=== PATIENT | female | born 1975 | race Caucasian/White ===

== ENCOUNTER 2019-02-03 02:04 | Emergency (ER) | payer SELFPAY ==
[2019-02-03 02:06] VITALS: BP 142/84; PULSE 80; PULSE 81; RESP 14; TEMP 37.2; O2SAT 100; O2SAT 98; BMI 34.7
--- NOTE | 2019-02-03 02:15 | ED.VIS.GEN ---
History of Present Illness Chief Complaint: Flank Pain Detail of Chief Complaint: Patient lower abdominal pain Informant: Patient Onset: Today Context: Sudden Onset Timing: Continuous Quality: Pain Location: Suprapubic Current Severity: Mild Maximum Severity: Moderate Worsened by: Palpation Relieved by: Nothing Associated Symptoms: Frequency Narrative: Patient is a 43-year-old woman who presents with suprapubic discomfort and frequency. She denies fever, chills or night sweats. She denies nausea, vomiting or diarrhea. She denies constipation. Denies blood or mucus in her stool. She denies black or maroon stool. She denies vaginal bleeding. She does have a large ventral hernia which is a recurrent hernia. She denies back pain or flank pain. Triage documents flank pain. She denies history of trauma. She denies rash or skin lesion. Prior similar symptoms: No Recent Illness/Hospitalization: No Past Medical History - Allergies and Home Meds Allergies/Adverse Reactions: Allergies No Known Allergies Allergy (Verified 02/03/19 02:26) Primary Care Physician: NOT,DEFINED [NON-STAFF] - Prior records reviewed: No - There are no records for review Surgical History: - - Ventral hernia repair Lives: Alone Smoking Status: Former smoker Alcohol: None Drugs: None Review of Systems General: Denies: Chills, Fever, Malaise, Sweats Cardiovascular: Denies: Chest pain, Palpitations Respiratory: Denies: Dyspnea, Cough, Dyspnea on exertion Gastrointestinal: Reports: Abdominal pain. Denies: Nausea, Vomiting, Diarrhea, Constipation, Melena, Hematochezia Genitourinary: Reports: Frequency. Denies: Dysuria, Hematuria Musculoskeletal: Denies: Myalgias, Arthralgias, Neck pain, Back pain, Swelling, Extremity Pain, -, - Skin: Denies: Rash, Wounds Neurological: Denies: Headache, Weakness, Parasthesia, Numbness Endocrine: Denies: Polyuria, Polydipsia Hematologic: Reports: Easy bruising, Easy bleeding Physical Exam Vital Signs/Narrative: Vital Signs Temp Pulse Resp BP Pulse Ox 02/03/19 02:06 98.9 F 81 14 142/84 H 98 Inital Vital Signs reviewed: Yes General: Well nourished, Well developed, No Acute Distress Head: Normocephalic, Atraumatic Eyes: Perrl, EOMI ENT: Moist mucous membranes, No rhinorrhea Neck: Supple, Nontender, No lymphadenopathy, No JVD Cardiovascular: Regular rate, Regular rhythm, No murmurs, Normal S1, Normal S2 Respiratory: No distress, CTA bilaterally, Chest nontender Abdomen: Soft, Normal bowel sounds, Tender - Suprapubic area, Ventral hernia, Hernia reducible. Negative for: Nontender, Nondistended, No masses Rectal: Deferred Back: Nontender, Normal Inspection Extremities: Nontender, No edema Skin: Normal color, No rash, No Trauma. Negative for: Cyanosis, Diaphoresis, Jaundice Neurological: Alert, Oriented x3, Cranial nerves II-XII grossly intact, Normal Strength, Normal Sensation Psychological: Normal affect, Normal Mood Diagnostic/Tx/Re-eval Laboratory Results 02/03/19 02/03/19 02:20 02:30 WBC 10.8 RBC 4.38 Hgb 8.5 L Hct 29.0 L MCV 66.2 L MCH 19.4 L MCHC 29.3 L RDW Std Deviation 43.4 RDW Coeff of Crow 18.6 H Plt Count 441 MPV 10.6 Immature Gran % (Auto) 0.500 Neut % (Auto) 71.0 H Lymph % (Auto) 18.4 L [place] % (Auto) 8.7 Eos % (Auto) 1.1 Baso % (Auto) 0.3 Absolute Neuts (auto) 7.7 Absolute Lymphs (auto) 1.98 Nucleated RBC % 0 Urine Color Yellow Urine Clarity Sl. Cloudy Urine pH 7.0 Ur Specific [place] 1.010 Urine Protein Negative Urine Glucose (UA) Normal Urine Ketones Negative Urine Occult Blood Negative Urine Nitrite Negative Urine Bilirubin Negative Urine Urobilinogen Normal Ur Leukocyte Esterase 500 H Urine RBC 0 SEEN Urine WBC 5-10 SEEN Ur Squamous Epith Cells 5-10 SEEN Urine Bacteria 0 SEEN Urine Mucus 0 SEEN - Medical Decision Making With complaint of frequency and suprapubic discomfort UA was obtained to assess for urinary tract infection. Patient does have a ventral hernia that is reducible and has no symptoms of obstruction therefore imaging was not obtained. CBC was obtained. If white count is elevated will consider CT of the abdomen and pelvis to assess for appendicitis or other cause. Her abdominal exam is remarkable only for suprapubic discomfort. No other testing was obtained She was reassessed at 0245. Her abdomen is essentially benign. There is minimal discomfort in the suprapubic area. She was informed that her results are unremarkable. The cause of her pain is unknown. [facility] was [facility] since she is new to the area and uninsured. ED Disposition - Plan for ED Patient: Disposition: Home or Assisted Living Diagnosis: Suprapubic pain, acute Instructions: ABDOMINAL PAIN, Unknown Cause, (Female) Prescriptions: Dicyclomine HCl [Bentyl] 20 mg PO TIDAC #20 cap Prescription Printed Referrals: NOT,DEFINED [NON-STAFF] - [facility] [NON-STAFF] - 3-5 Days if not improving
[2019-02-03 02:35] LABS: Absolute Lymphocyte Count 1.98 X10^3/uL (0.83-4.51); Absolute Neutrophil Count 7.7 X10^3/uL (2.0-7.7); Basophil# 0.03 X10^3/uL; Basophil% 0.3 % (0-1); Eosinophil# 0.12 X10^3/uL; Eosinophils% 1.1 % (0-5); Hemoglobin 8.5 g/dL (12.0-15.0); Lymphocyte # 1.98 X10^3/ul (4.0); Lymphocyte % 18.4 % (19-41); Mean Corp Hgb Conc 29.3 g/dL (32-36); Mean Corpuscular Hgb 19.4 pg (27.0-32.0); Mean Corpuscular Volume 66.2 fL (81-99); Mean Platelet Vol. 10.6 fl (6.2-12.0); Monocyte# 0.94 X10^3/uL; Monocyte% 8.7 % (0-10); NRBC Flagged by Analyzer 0 % (0-5); Neutrophil # 7.65 X10^3/uL (2.7-7.7); Platelet Count 441 K/mm3 (150-450); RBC Distribution Width CV 18.6 % (11.6-14.6); RBC Distribution Width SD 43.4 fl (35.1-43.9); Red Blood Count 4.38 M/mm3 (4.2-5.4); White Blood Count 10.8 K/mm3 (4.4-11.0)
[2019-02-03 02:36] LABS: Bacteria 0 SEEN /hpf (None Seen); Color, Urine Yellow (Yellow); Glucose, Dipstick Normal (Normal); Ketone-Dipstick Negative (Negative); Leukocyte Esterase-Dipstick 500 /ul (Negative); Mucous, Urine 0 SEEN /hpf (<or=2+); Nitrite-Dipstick Negative (Negative); Occult Blood-Urine Negative /ul (Negative); Protein-Dipstick Negative (Negative); Red Blood Cells-Urine 0 SEEN /hpf (0-5); Urine Bilirubin Dipstick Negative (Negative); Urine Clarity Sl. Cloudy (Clear); Urine Urobilinogen Normal (Normal)
[2019-02-03 02:42] LABS: Squamous Epithelial Cells - UA 5-10 SEEN /hpf (5-10); White Blood Cells 5-10 SEEN /hpf (0-5)
[2019-02-03 02:57] VITALS: BP 131/79; PULSE 82; RESP 18; O2SAT 97
--- NOTE | 2019-02-03 02:58 | ED.RN ---
THIS NURSE REVIEWED D/C INSTRUCTIONS WITH PT. PT VERBALIZED UNDERSTANDING OF INSTRUCTIONS. IV D/C. IV CATHETER INTACT. PT TOLERATED WELL. PT REQUESTING A DR EXCUSE FOR WORK TODAY. PT DENIES FURTHER NEEDS OR QUESTIONS AT THIS TIME. PT AMBULATES FROM ROOM ON OWN WITHOUT ASSISTANCE FROM STAFF.
== END 2019-02-03 02:59 | disposition home or self-care (01) ==
PROVIDERS: Emergency Provider Emergency Medicine
DX: R10.30 Lower abdominal pain, unspecified (principal); Z87.891 Personal history of nicotine dependence
CPT/HCPCS: 81001; 85025; 99284; A4216

== ENCOUNTER 2019-02-03 11:14 | Inpatient (IN) | payer SELFPAY ==
--- NOTE | 2019-02-03 | PLAC_PTH ---
PATIENT: JOSE HARRIS LOC: [facility] U#:[id number] AGE/SX: 43/F ROOM: WP008 RE02/03/[address]: Dr. Eloise Talbot, MDDOB: 1975 BED: 1 DIS: 02/04/2019 SPEC #: [id number] RECD: 02/04/19 12:40 STATUS: VANESSA MARICARMEN #: [id number] GABY: 02/03/19 00:[address]: Eloise Talbot DEPT: SURGICAL PATHOLOGY RECD BY: Celio Espana ENTERED: 02/04/19 12:40 SP TYPE: PLACENTA OTHR DR: No Primary Care Phys Tissues: Placenta, NOS Procedures: Surgery Specimen Level V HEADER OPERATION: Vaginal delivery PRE-OP DIAGNOSIS: Labor and delivery TISSUE SUBMITTED: Placenta MICROSCOPIC DIAGNOSIS Nicole placenta (409 grams) Umbilical cord - two vessels with focal acute funisitis. Placental membranes - focal mild acute chorioamnionitis. Placental disc - organizing intraparenchymal hemorrhage, focal nonspecific chronic villitis and Joel-Alejandro change. AM:godwin 02/05/19 MICROSCOPIC DESCRIPTION Slides are reviewed. GROSS DESCRIPTION SPECIMEN: PLACENTA / CLINICAL INFORMATION: A. Weight: 2.995 kg B. Gestational Age: C. Sex: Female PLACENTAL WEIGHT (POST FIXATION): 409 grams PLACENTAL DIMENSIONS: 17 x 13 x 3 cm PLACENTAL SHAPE: Usual ovoid PLACENTAL WEIGHT FOR GESTATIONAL AGE: Within 10-99th percentile MEMBRANES - Present A. Insertion: Marginal B. Site of rupture from edge: 13 cm from the margin edge of placental disc C. Color of membrane: Briceno-torres D. Abnormalities: None UMBILICAL CORD - Present A. Color: Briceno-torres B. Insertion: Central C. Length: 46 cm D. Diameter: up to 1 cm in diameter E. Number of vessels: Two F. Abnormalities: None PLACENTAL DISC - Present A. Color of surface: Briceno-torres B. surface abnormalities: None C. Maternal cotyledons: Intact with minimal tears D. Attached retro placental clot: Also present at the retro portion of the placenta, multiple blood clots weighing in aggregate 20 grams and measuring in aggregate 5 x 4 x 2 cm E. Cut surface: Dark red and spongy F. Lesions: One briceno indurated area in the peripheral portion of the placenta measuring 1.5 cm in greatest dimension G. Separate clot: multiple blood clots weighing in aggregate 40 grams and measuring 9 x 7 x 3 cm. SECTIONS SUBMITTED: 1. Membrane roll 2. Cord, maternal end 3. Cord, end 4. Placental disc, and maternal surfaces, lesions 5. Placental disc, and maternal surfaces 6. Placental disc, and maternal surfaces DIXON:sp 02/04/19 TC: CPT: 55435
[2019-02-03 02:06] VITALS: BMI 34.7
[2019-02-03 11:14] VITALS: BP 145/95; PULSE 125; RESP 16; TEMP 36.1; O2SAT 96; BMI 34.0
--- NOTE | 2019-02-03 11:15 | ED.RN ---
pt vague about where pain is in back. states all over. denies injury or hx back pain. reports urinated in pants a little bit ago (still wearing) denies gu sx or issues. holding sides.mid back and hunched over when walking. after further questioning patient points to mid/lower back for pain. assisted to bathroom, instructed on urine collection. pt unable to urinate at this time.
--- NOTE | 2019-02-03 11:55 | ED.RN ---
Addendum entered by Consuelo Webb 02/03/19 12:54: pt asked of chance of at this time. denies chance of reports had reg period just few months ago. Original Note: noted blood on blanket. pt denies knowing she was bleeding. nurse assessed blood and mucus on sheets with scant stool. cleaned pt and assessed where bleeding comingfrom. pt bleeding vaginally. constant slow seeping of blood.
[2019-02-03] MEDS: Ondansetron 4 MG/2 ML Vial IV (11:56)
[2019-02-03] MEDS: Morphine 4 MG/ML Syringe IV (11:56)
[2019-02-03] MEDS: 0.9% Normal Saline 1,000 ML 1000 ML IV (11:56)
--- NOTE | 2019-02-03 12:00 | ED.RN ---
dr martinez notified of vag bleeding and mucus.
[2019-02-03 12:01] LABS: Absolute Lymphocyte Count 1.36 X10^3/uL (0.83-4.51); Absolute Neutrophil Count 13.9 X10^3/uL (2.0-7.7); Basophil# 0.03 X10^3/uL; Basophil% 0.2 % (0-1); Eosinophil# 0.01 X10^3/uL; Eosinophils% 0.1 % (0-5); Hematocrit 31.5 % (37-47); Hemoglobin 9.3 g/dL (12.0-15.0); Lymphocyte # 1.36 X10^3/ul (4.0); Lymphocyte % 8.4 % (19-41); Mean Corp Hgb Conc 29.5 g/dL (32-36); Mean Corpuscular Hgb 19.6 pg (27.0-32.0); Mean Corpuscular Volume 66.3 fL (81-99); Mean Platelet Vol. 10.2 fl (6.2-12.0); Monocyte# 0.68 X10^3/uL; Monocyte% 4.2 % (0-10); NRBC Flagged by Analyzer 0 % (0-5); Neutrophil # 13.87 X10^3/uL (2.7-7.7); Neutrophil % 86.1 % (47-70); Platelet Count 502 K/mm3 (150-450); RBC Distribution Width CV 18.7 % (11.6-14.6); RBC Distribution Width SD 43.3 fl (35.1-43.9); Red Blood Count 4.75 M/mm3 (4.2-5.4); White Blood Count 16.1 K/mm3 (4.4-11.0)
--- NOTE | 2019-02-03 12:07 | ED.RN ---
Addendum entered by Consuelo Webb 02/03/19 12:57: DR mcdaniels at bedside clamped/cut cord. baby suctioned and skin from dusky to pink. no distress noted with baby or mother at this time. Original Note: registration went to go n room. noted pt laying flat in bed and a baby on the bed. called for assistance. nursing and 2 doctors at bedside to treat and mother. OB BEVERAGE SPECIALIST called.
[2019-02-03 12:10] LABS: ALB/GLOB Ratio 0.6 RATIO (0.9-2.4); AST(SGOT) 13 U/L (15-37); Alanine Aminotransfer ALT/SGPT 9 U/L (13-56); Albumin, Serum 2.7 g/dL (3.2-5.0); Alkaline Phosphatase 128 U/L (45-117); Anion Gap 9 (5-15); BUN 5 mg/dL (7-18); BUN/Creat Ratio 7.9 RATIO (10-20); Calcium,Total 8.9 mg/dL (8.5-10.1); Chloride 107 mmol/L (98-107); Creatinine, Serum 0.64 mg/dL (0.55-1.02); EST Glomerular Filtration Rate 109 mL/min (>60); Est Glom Filt Rate - Afr Amer 131 mL/min (>60); Estimated Creatinine Clearance 115.51 ml/min; Globulin 4.7 g/dL (2.2-4.2); Glucose 124 mg/dL (74-106); Lipase 127 U/L (73-393); Potassium 3.4 mmol/L (3.5-5.1); Protein, Total 7.4 g/dL (6.4-8.2); Sodium Level 137 mmol/L (136-145)
--- NOTE | 2019-02-03 12:10 | ED.RN ---
Addendum entered by Consuelo Webb 02/03/19 12:59: bedside report to OB team who assumed care of baby and mother., Original Note: OB team at bedside assisting with care. dr martinez placing pressure to abd and managing placenta delivery. dr yost in route to ED
[2019-02-03 12:25] LABS: Internal QC Validated? YES +Cl - CLEAR BKGD
[2019-02-03] MEDS: Oxytocin 30 units/NS 500 ml 30 UNITS/500 ML IV.SOLN 334 UNITS IV (12:25)
[2019-02-03 12:28] LABS: Pregnancy, Serum, hCG Quali. POSITIVE Negative
--- NOTE | 2019-02-03 12:30 | ED.RN ---
pt declines calling family or friend at this time.
--- NOTE | 2019-02-03 12:41 | PCM.HP.OB ---
History Date of Admission: 02/03/19 Final BUTCH Source: LMP Gestational age: UNSURE History of this : This is a 43 year-old, G 2p1 - UNSURE OF LMP- STATES HAD A MENSES ABOUT 2 MONTHS AGO- PRESENTED TO ER C/O ABDOMINAL PAIN AND URINARY INCONTINENCE- DELIVERED LIVE FEMALE . PT REPORTS HAD NO IDEA SHE WAS . I WAS CALLED TO EVALUATE PATIENT AND DELIVER PLACENTA. PT REPORTS HAS NOT SEEN SPINE SURGEON IN YEARS, HAS ONE SON AGE 19- VAGINAL DELIVERY. PT DENIES DRUG USE, SMOKING, OR MEDICATIONS. Medical History: Medical History (Last Updated 02/03/19 @ 12:46 by Eloise Talbot MD) Hernia K46.9 Allergies Penicillins Allergy (Verified 02/03/19 11:16) Hives Home Medications: Home Medications NK 02/03/19 Smoking Status: Former smoker Alcohol: None Number of Fetus(es): 1 History Past Pregnancies: Past Pregnancies Delivery Date Name GA/Weeks Outcome Route Weight Infant Gender Labor Length Anesthesia Delivery Location Provider FOB Labs: no care Physical Exam Vitals: Vital Signs Temp Pulse Resp BP Pulse Ox 97 F L 125 H 16 145/95 H 96 02/03/19 11:14 02/03/19 11:14 02/03/19 11:14 02/03/19 11:14 02/03/19 11:14 General: Alert, Oriented x3 Assessment/Plan All Active Problems Suprapubic pain, acute (Acute) This is a 43 year-old, - S/P VAGINAL DELIVERY IN ER- NO CARE DID NOT KNOW SHE WAS . 1) URINE DRUG SCREEN 2) PLACENTA DELIVERED - FUNDUS FIRM- BLEEDING MINIMAL 3) SOCIAL WORK CONSULTATION 4) CONTINUE PITOCIN IV 5) 2ND DEGREE VAGINAL LACERATION- REPAIRED 6 TRANFER TO [facility]
--- NOTE | 2019-02-03 12:49 | PCM.OPRPT ---
Vaginal Delivery Maternal Presentation: - - NO CARE- PRECIPTIOUS DELIVERY IN ER- CAME C/O ABDOMINAL PAIN AND URINARY INCONTIENENCE Amniotic Membrane Rupture Type: Spontaneous Date of Procedure: 02/03/19 Pre-Operative Diagnosis: NO CARE, FEMALE BORN IN ER Post-Operative Diagnosis: SAME Surgery/ Procedure Performed: Spontaneous Vaginal Delivery Type of Anesthesia: None Description of Procedure: I WAS CALLED TO ER TO EVAULATE PATIENT AFTER SHE UNEXPECTEDLY DELIVERED LIVE FEMALE IN ER. PT DID NOT KNOW SHE WAS . REPORTS HAD MENSES ABOUT 2 MONTHS AGO Presentation: Vertex Placental Delivery Description: Spontaneous Placenta Disposition: Routine to Lab Cord Vessel Description: 3 Vessels Estimated Blood Loss: 250 A gender: Female Episiotomy Description: None Laceration: Vaginal Extension/lac - REAPAIRED WITH 2-0 VICRYL, 2nd degree Medications given after delivery: IV Pitocin
[2019-02-03] MEDS: Oxytocin 30 units/NS 500 ml 30 UNITS/500 ML IV.SOLN 167 UNITS IV (12:55)
--- NOTE | 2019-02-03 13:02 | CM.ED ---
Social Work Responding to OB MOLECULAR PATHOLOGIST in ED. Was unable to meet with patient in room due to patient being medically cared for. Per nursing staff patient delivered while in ED. Registration was going to register patient when registration noticed an infant on patient bed. MOLECULAR PATHOLOGIST then called. Nursing staff stating that patients back was towards , umbilical cord still connecting and patient. Nursing staff stating that patient was not aware that patient was and was coming to the emergency department for treatment of back pain. Patient declined skin to skin, per nursing staff. Nursing staff reporting that patient is presenting with a flat affect and is in shock. Patient transferred to [facility]. This social media director giving hand off of above concerns to DANYELL Curran in [facility]. Social work to follow up with patient in . Sadi AYALA, MEKHI
[2019-02-03 13:12] VITALS: BMI 31.1
--- NOTE | 2019-02-03 13:15 | ED.VISSUMM ---
- ER Visit Summary Date of Service: 02/03/19 Chief Complaint: Back and abdominal pain History of Present Illness: The patient is a 43 F who presents with back and abdominal pain that began yesterday. Patient states her pain is cramping and is diffuse across her abdomen and into her back. Patient states the pain is worse on the right. Patient states her pain feels slightly better with laying on her left side. Patient denies any nausea or vomiting. Patient denies any diarrhea, melena, or hematochezia. Patient denies any dysuria or hematuria. Patient states her last menstrual period was 2 months ago and was normal. Patient was seen here earlier today and had a CBC and urinalysis which were essentially normal. Physical Examination: Vital signs are stable except for mild tachycardia of 125. Patient is afebrile. Patient is in no acute distress. Oral mucosa was pink and moist. Neck is supple. Trachea is midline. There is no JVD. Heart was regular and tachycardic. Lungs are clear and equal bilaterally. Abdomen is soft. Bowel sounds are normal. There is a ventral hernia that is nontender. Patient would not lay on her back for complete evaluation. Patient only wanted to lay on her left side. There is right lower quadrant and right lower lumbar tenderness. Test Results: CBC and comprehensive metabolic profile were obtained. There is mild leukocytosis of 16.1. Platelets were slightly elevated at 502. The remaining labs were essentially within normal limits. Serum hCG was positive. Emergency Department Course and Treatment: Patient was given IV fluids, morphine, and Zofran. While here in the emergency department patient started having more pain. Patient delivered a baby girl that appeared to be near full-term. OB was consulted. They came in to evaluate the patient. The placenta was delivered by Dr. Escobar. She also repaired a small vaginal tear. Patient will be admitted to the OB unit. Patient understood and was agreeable with the plan. All questions were answered. Disposition: Admit to OB Impression: Vaginal delivery This note was generated with [employer] dictation software. It may contain incorrect words, spelling, and punctuation that were not noted in review of the chart prior to signing ED Disposition - Plan for ED Patient: Disposition: Acute Care [facility] Diagnosis: Vaginal delivery Referrals: Care Physician,No Primary [Primary Care Provider] -
[2019-02-03] MEDS: Ibuprofen 600 MG Tablet PO ×2 (13:47→20:43)
--- NOTE | 2019-02-03 14:10 | NURSING ---
OB ERT called to ED at approximately 1207. Zhane Duarte, Kathy Scales, and Yadira responded to ED by 1210. According to ED nurse, Lilibeth, patient came in with back pain and did not know she was . She delivered a viable, vigorous female at approximately 1205. ED doctor and nurse were at bedside. Infant appeared to have score of 9 at that time. Infant was given warm blankets. Placed in a radiant warmer and taken to next room as high energy forming equipment operator arrived by [address] Escobar at beside at 1218. Placenta was delivered at 1223. A 2nd degree vaginal laceration was repaired by OB at bedside with lidocaine. IV Pitocin administered at 1225 at 334ml/hr by this RN (see MAR). Pericare performed and linens changed following vaginal repair. Patient was transferred to OB via stretcher at approximately 1255.
[2019-02-03 14:22] LABS: Absolute Lymphocyte Count 0.91 X10^3/uL (0.83-4.51); Absolute Neutrophil Count 19.8 X10^3/uL (2.0-7.7); Basophil# 0.03 X10^3/uL; Basophil% 0.1 % (0-1); Hemoglobin 8.3 g/dL (12.0-15.0); Lymphocyte # 0.91 X10^3/ul (4.0); Lymphocyte % 4.2 % (19-41); Mean Corp Hgb Conc 29.6 g/dL (32-36); Mean Corpuscular Hgb 19.6 pg (27.0-32.0); Mean Corpuscular Volume 66.2 fL (81-99); Mean Platelet Vol. 10.6 fl (6.2-12.0); Monocyte# 0.84 X10^3/uL; Monocyte% 3.9 % (0-10); NRBC Flagged by Analyzer 0 % (0-5); Neutrophil # 19.82 X10^3/uL (2.7-7.7); Platelet Count 423 K/mm3 (150-450); RBC Distribution Width CV 18.7 % (11.6-14.6); RBC Distribution Width SD 43.6 fl (35.1-43.9); Red Blood Count 4.23 M/mm3 (4.2-5.4); White Blood Count 21.8 K/mm3 (4.4-11.0)
[2019-02-03 15:35] LABS: Pathology Specimen OB SEE PATHOLOGY REPORT
[2019-02-03 16:00] VITALS: BP 112/53; PULSE 102; RESP 18; TEMP 36.4; O2SAT 95
[2019-02-03 16:03] LABS: Amphetamine Urine VISTA NEGATIVE (<1000 ng/mL); Barbiturate Urine VISTA NEGATIVE (< 200 ng/mL); Benzodiazepine Urine VISTA NEGATIVE (< 200 ng/mL); Cocaine Urine VISTA NEGATIVE (< 300 ng/mL); Ecstacy Urine VISTA NEGATIVE (< 500 ng/mL); Methadone Urine VISTA NEGATIVE (< 300 ng/mL); PCP Urine VISTA NEGATIVE (< 25 ng/mL); THC Urine VISTA NEGATIVE (< 50 ng/mL); Vista UDS pH Range 5
--- NOTE | 2019-02-03 17:00 | CASEMGMT ---
Social Work Labor and Delivery Unit Handoff report received from ED social media director Leanne Mckinney today. Spoke patient/mother of baby (MOB) RN Kailee Ramon. this date for update on how MOB has been doing as well as any interactions that MOB has had so far with baby. Plan: As MOB has had a long day and RN has been able to talk with MOB about MOB's wishes thus far regarding care of baby this keno writer will give MOB some time to process events of the day and talk with MOB in the morning to further explore needs for this family. -UMBERTO Ruggiero, UI ENGINEER
--- NOTE | 2019-02-03 17:53 | NURSING ---
Patient is appropriate but withdrawn when infant is in room. Patient has not looked at while [id number] or in the crib while was in the room that I have observed. was taken to nursery to rewarm under warmer while mother sleeps. Patient asked if she would be comfortable keeping baby in her room when infant stabilizes, and she hesitantly said yes. She stated she has not had time to process this delivery and does not know what she plans to do in regards to keeping this baby. I expressed understanding and encouraged her to tell staff if she is uncomfortable with contact with at any time. We will keep infant in nursery any time the patient wishes. family day care worker notified and will see patient first thing in the morning.
[2019-02-03 20:25] VITALS: BP 117/56; PULSE 104; RESP 18; TEMP 36.1
--- NOTE | 2019-02-03 22:37 | NURSING ---
No education given re: baby care at this time d/t Pt wanting baby to stay in nursery. Per prior shift, Pt is wanting baby placed up for adoption. Pt has not spoke of baby yet this shift.
[2019-02-03 23:06] LABS: Rubella IgG 49.1 IU/mL
[2019-02-03 23:52] VITALS: BP 118/77; PULSE 91; RESP 18; TEMP 36.2
[2019-02-04 00:34] LABS: Chlamydia Trachomatis by PCR Negative (Negative); Neisserai gonorrhoeae by PCR Negative (Negative); Probe Check PASS; Sample Adequacy Control PASS; Specimen Processing Control PASS
[2019-02-04 03:43] VITALS: BP 109/79; PULSE 94; RESP 18; TEMP 36.4
[2019-02-04 07:12] LABS: Hepatitis B Surface Antigen Non-Reactive (Nonreactive)
[2019-02-04 08:15] VITALS: BP 120/75; PULSE 79; RESP 16; TEMP 36.7; O2SAT 95
--- NOTE | 2019-02-04 08:34 | PN.OBGYN_ITS ---
Patient Problems: Active and Suspected Problems (Last Updated 02/03/19 @ 12:46 by Eloise Escobar MD) Vaginal delivery (Acute) Subjective: She is seen at bedside, doing well. Patient reports good pain control. Mild lochia. Patient denies any complications with urinating. Patient overall emotionally is doing well. Patient will discuss with social work today but is planning on placing the baby for adoption. Patient reports does not have the best support system at home she does have a 19-year-old son that lives with her. Patient reports that her [id number]-lso is in stage IV liver cancer and she has been giving support to her. - Physical Exam General: Alert, Oriented x3 Abdomen: Soft, Non Tender, Non-Distended, - - Fundus firm Extremities: No Calf Tenderness Vital Signs Temp Pulse Resp BP Pulse Ox 97.6 F L 94 18 109/79 95 02/04/19 03:43 02/04/19 03:43 02/04/19 03:43 02/04/19 03:43 02/03/19 16:00 Oxygen Delivery Method Room Air Weight: 92.986 kg Body Mass Index (BMI) 31.1 Intake and Output for Last 24 Hours 02/02/19 02/03/19 02/04/19 23:59 23:59 23:59 Intake Total 334 / 334 Output Total 1300 / 1300 Balance -966 / -966 Laboratory Tests Past 24 Hrs 02/03/19 02/03/19 02/03/19 11:45 11:45 11:45 WBC 16.1 H RBC 4.75 Hgb 9.3 L Hct 31.5 L MCV 66.3 L MCH 19.6 L MCHC 29.5 L RDW Std Deviation 43.3 RDW Coeff of Crow 18.7 H Plt Count 502 H MPV 10.2 Immature Gran % (Auto) 1.000 H Neut % (Auto) 86.1 H Lymph % (Auto) 8.4 L [place] % (Auto) 4.2 Eos % (Auto) 0.1 Baso % (Auto) 0.2 Absolute Neuts (auto) 13.9 H Absolute Lymphs (auto) 1.36 Nucleated RBC % 0 Sodium 137 Potassium 3.4 L Chloride 107 Carbon Dioxide 21.0 Anion Gap 9 BUN 5 L Creatinine 0.64 Estim Creat Clear Calc 115.51 Est GFR (MDRD) Af Amer 131 Est GFR (MDRD) Non-Af 109 BUN/Creatinine Ratio 7.9 L Glucose 124 H Calcium 8.9 Total Bilirubin 0.40 AST 13 L ALT 9 L Alkaline Phosphatase 128 H Total Protein 7.4 Albumin 2.7 L Globulin 4.7 H Albumin/Globulin Ratio 0.6 L Lipase 127 Serum , Qual POSITIVE H Urine Opiates Screen Urine Methadone Screen Ur Barbiturates Screen Ur Phencyclidine Scrn Ur Amphetamines Screen U Methamphetamin-MDMA U Benzodiazepines Scrn Urine Cocaine Screen U Cannabinoids Screen Ur Drug Screen Comment RPR Chlam trachomat DNA PCR Hep Bs Antigen Hepatitis C Antibody HIV 1&2 Antibody N.gonorrhoeae DNA (PCR) Rubella IgG Antibody Blood Type Antibody Screen 02/03/19 02/03/19 02/03/19 13:35 13:35 13:35 WBC 21.8 H RBC 4.23 Hgb 8.3 L Hct 28.0 L MCV 66.2 L MCH 19.6 L MCHC 29.6 L RDW Std Deviation 43.6 RDW Coeff of Crow 18.7 H Plt Count 423 MPV 10.6 Immature Gran % (Auto) 0.800 Neut % (Auto) 91.0 H Lymph % (Auto) 4.2 L [place] % (Auto) 3.9 Eos % (Auto) 0.0 Baso % (Auto) 0.1 Absolute Neuts (auto) 19.8 H Absolute Lymphs (auto) 0.91 Nucleated RBC % 0 Sodium Potassium Chloride Carbon Dioxide Anion Gap BUN Creatinine Estim Creat Clear Calc Est GFR (MDRD) Af Amer Est GFR (MDRD) Non-Af BUN/Creatinine Ratio Glucose Calcium Total Bilirubin AST ALT Alkaline Phosphatase Total Protein Albumin Globulin Albumin/Globulin Ratio Lipase Serum , Qual Urine Opiates Screen Urine Methadone Screen Ur Barbiturates Screen Ur Phencyclidine Scrn Ur Amphetamines Screen U Methamphetamin-MDMA U Benzodiazepines Scrn Urine Cocaine Screen U Cannabinoids Screen Ur Drug Screen Comment RPR Pending Chlam trachomat DNA PCR Hep Bs Antigen Hepatitis C Antibody HIV 1&2 Antibody N.gonorrhoeae DNA (PCR) Rubella IgG Antibody 49.1 Blood Type Antibody Screen 02/03/19 02/03/19 02/03/19 13:35 13:35 15:15 WBC RBC Hgb Hct MCV MCH MCHC RDW Std Deviation RDW Coeff of Crow Plt Count MPV Immature Gran % (Auto) Neut % (Auto) Lymph % (Auto) [place] % (Auto) Eos % (Auto) Baso % (Auto) Absolute Neuts (auto) Absolute Lymphs (auto) Nucleated RBC % Sodium Potassium Chloride Carbon Dioxide Anion Gap BUN Creatinine Estim Creat Clear Calc Est GFR (MDRD) Af Amer Est GFR (MDRD) Non-Af BUN/Creatinine Ratio Glucose Calcium Total Bilirubin AST ALT Alkaline Phosphatase Total Protein Albumin Globulin Albumin/Globulin Ratio Lipase Serum , Qual Urine Opiates Screen Urine Methadone Screen Ur Barbiturates Screen Ur Phencyclidine Scrn Ur Amphetamines Screen U Methamphetamin-MDMA U Benzodiazepines Scrn Urine Cocaine Screen U Cannabinoids Screen Ur Drug Screen Comment RPR Chlam trachomat DNA PCR Negative Hep Bs Antigen Non-Reactive Hepatitis C Antibody Pending HIV 1&2 Antibody Pending N.gonorrhoeae DNA (PCR) Negative Rubella IgG Antibody Blood Type O POSITIVE Antibody Screen NEGATIVE 02/03/19 15:15 WBC RBC Hgb Hct MCV MCH MCHC RDW Std Deviation RDW Coeff of Crow Plt Count MPV Immature Gran % (Auto) Neut % (Auto) Lymph % (Auto) [place] % (Auto) Eos % (Auto) Baso % (Auto) Absolute Neuts (auto) Absolute Lymphs (auto) Nucleated RBC % Sodium Potassium Chloride Carbon Dioxide Anion Gap BUN Creatinine Estim Creat Clear Calc Est GFR (MDRD) Af Amer Est GFR (MDRD) Non-Af BUN/Creatinine Ratio Glucose Calcium Total Bilirubin AST ALT Alkaline Phosphatase Total Protein Albumin Globulin Albumin/Globulin Ratio Lipase Serum , Qual Urine Opiates Screen POSITIVE H Urine Methadone Screen NEGATIVE Ur Barbiturates Screen NEGATIVE Ur Phencyclidine Scrn NEGATIVE Ur Amphetamines Screen NEGATIVE U Methamphetamin-MDMA NEGATIVE U Benzodiazepines Scrn NEGATIVE Urine Cocaine Screen NEGATIVE U Cannabinoids Screen NEGATIVE Ur Drug Screen Comment RPR Chlam trachomat DNA PCR Hep Bs Antigen Hepatitis C Antibody HIV 1&2 Antibody N.gonorrhoeae DNA (PCR) Rubella IgG Antibody Blood Type Antibody Screen Medical Necessity - Tobacco Use Smoking Status: Never smoker Assessment/Plan All Active Problems (Last Updated 02/03/19 @ 12:46 by Eloise Talbot MD) Vaginal delivery (Acute) day #1, doing well Chronic anemia-will start patient on iron. Patient reports she has always been anemic but does not take her iron supplementation as recommended Routine care Pain management Ambulation Social work consult today.
--- NOTE | 2019-02-04 08:39 | DCINST_ITS ---
Discharge Diet: No Restrictions Discharge Activity: Return to Normal Activity, May not drive while taking narcotic pain medications., May Shower May resume sexual activity in: 4-6 weeks Additional Activity Instructions:: Nothing in the vagina for 4-6 weeks. You may return to work/school in 6 weeks. Call your doctor if your incision/area has: Continuous Slow Oozing, Sudden Increased Bleeding, Increased Pain/ Swelling, Increased Redness, Foul Smelling Discharge Additional Instructions: If you experience any of the following, contact your healthcare provider. * Bleeding that soaks a pad every hour for 2 hours * Fever 100.4 or higher * Unrelieved incision or abdominal pain * Swelling, redness, discharge or bleeding from your incision or episiotomy site * Your incision begins to separate * Problems urinating (including inability to urinate or burning while urinating). * Visual changes * Severe headache * Flu-like symptoms * Pain or redness in one of both of your breasts * Pain, warmth, tenderness or swelling in your legs, especially the calf area * Frequent nausea and vomiting * Symptoms of depression or anxiety If you experience any of the following, call 911 or go to the nearest Emergency Room. * Chest pain * Problems breathing * Seizure activity * Partial or complete paralysis of a body part, slurred speech, weakness or drooping of the face, or a sudden inability to walk or hold your balance Allergies/Adverse Reactions: Allergies Penicillins Allergy (Verified 02/03/19 13:20) Hives Medications to take at Discharge Ferrous Sulfate 325 mg PO BID #60 tab 02/04/19 Ibuprofen [Motrin] 600 mg PO Q6H PRN PRN #30 tab 02/04/19 The following prescriptions were given: Ferrous Sulfate 325 mg PO BID #60 tab Transmission Status: Pending to [facility] Ibuprofen [Motrin] 600 mg PO Q6H PRN PRN #30 tab PRN Reason: Mild Pain (-09/15) Transmission Status: Pending to [facility] When: Call to make an appointment with your doctor in 6 weeks. If you had elevated Blood Pressure or 4th degree laceration you will need to be seen in 2 weeks. Primary Care Physician: Care Physician,No Primary [Primary Care Provider] - Test Results: Test results from this visit will be discussed in further detail at your follow- up appointment, if applicable.
[2019-02-04 08:50] LABS: HIV - WCH Non-Reactive (Nonreactive); Hepatitis C Antibody Non-Reactive (Nonreactive)
--- NOTE | 2019-02-04 09:50 | CASEMGMT ---
Addendum entered and electronically signed by Jana Hill 02/05/19 15:55: for clarification the reason for referral: unplanned , MOB was unaware of , no care; assess for resource needs and intentions regarding parenting of baby. UMBERTO Hollis, TELEVISION TUBE INSPECTOR Original Note: Social Work Assessment Labor and Delivery Unit Date of Referral: 02/03/2019 Referred By: OB-ERT called in the ED; conversation with ED social worker psychiatric and [facility] nursing staff Date of Intervention: 02/04/2019 Time of Intervention: approximately [id number] Reason for Referral: History obtained from: medical records and mother of baby (MOB)/ mother Zoila Macdonaldser Household composition: MOB lives with 2 roommates in an apartment for the last 4 months. Patient's parent/guardian status: LINDSAY is a 43 year old female. MOB?s parents are still living and MOB is 1 of 5 children. Father of baby is not known, between 1 or 2 men. MOB reports that does not talk to or communicate with potential FOB. MOB does endorse sexual intercourse as consensual; denies any trauma associated with conception. LINDSAY has two children: baby girl (Minoo Sevilla) born on 02.03.2019, and an 18 year old son named Lon who lives with his biological father in [place]. Medical History: LINDSAY is G2, P1 to 2 after delivery of Baby girl. MOB had no care during this as reports that did not realize that was . MOB reports that missed a few periods in the beginning but attributed this to starting menopause and then the last 2 months reportedly had a period. MOB reports history of hernia and attributed changes in the abdominal area to hernia. MOB sought out care in the [facility] ER early in the morning of 02-03-2019 for back pain issues, then sought out care at the [facility] in [facility] [address] later in the morning of 02-03-2019 and from [facility] was sent to the ER again. MOB reports [facility] was unsure what was causing so much pain. MOB denied possibility of at both ED and [facility] visits. MOB delivered baby girl precipitously in the [facility] ED. Baby girl's weight was 6 pounds 12 ounces, 9 at 5 minutes of life, and estimated gestational age is 40 weeks. MOB denies any chronic health conditions for self. Reports an older brother had drug addiction in his late teens. On LINDSAY?s maternal side there is diabetes, Hypertension, and breast cancer. On MOB?s paternal side there is diabetes, hypertension, and colon cancer. Educational Status: MOB graduated high school. Diagnosed with dyslexia. Reports at this time in life to be able to read, write, and to understand what is read. Financial Status: LINDSAY works fulltime on first shift at [employer]. Has had this job for the last 4 months. Supplies: Not in place as MOB did not know of . MOB intends to make an adoption plan for baby. Childcare/Caregiver(s): Intents to make an adoption plan. Transportation: No issues. Programs/Agencies Involved: No agency involvement. LINDSAY has applied for medicaid with the help of [facility] financial sales representative [employer]. Children Services/Legal Issues: MOB denies past or present history with children services. No reports of legal issues. Behavioral Health Issues: Mental Health History: MOB denies any history of depression, anxiety, PTSD, Bipolar disorder, or ADHD. MOB reports people told MOB that thought MOB had some depression after Lon was born. MOB reports did not have a lot of help at that time in life and was a first time mother not knowing what to expect. MOB denies any history of suicidal thoughts, plans, intent, or attempts. No thoughts of harm to others endorsed. Substance Use History: MOB denies any history of drug abuse or dependence. Denies use of marijuana, heroin, meth, cocaine, or other drugs of abuse. MOB reports does drink alcohol socially and drank approximately 3-4 times during , about 4 wine coolers at each setting. MOB denies tobacco use. Family History: Reports older brother had history of addiction in late teens but is fine now. Drug Screens: MOB had positive drug screen at delivery for opiates, but was given morphine prior to urine collection. Baby?s urine drug screen is negative. Meconium is pending. Family/Social Stressors: MOB with housing instability and financial issues during this . MOB reports has been in current home for about 4 months, prior to that a homeless prison for 3 months, and prior to that was living with one of LINDSAY?s brothers. LINDSAY?s mother has had 2 heart attacks in the last year and MOB?s [id number] has stage 5 liver cancer. Unplanned at an advanced maternal age, with recent housing and financial instability and no preparation for a baby at home. Support Systems: MOB reports to have support from family but that support is limited due to health issues with family members. MOB reports to have some close friends that can talk to. MOB also reports to talk regularly to son Lon. ASSESSMENT: MOB pleasant, cooperative and willing to engage in conversation with social work assessment. MOB discussed that had no idea of , that really thought abdominal changes were due to hernia and then pain issues recently was due to kidney or bladder issues. MOB reports had she known of would have taken better care of self an gotten self to the doctors. MOB discussed intent to make an adoption plan for baby, feeling that not in a place in life to provide for a child, as well as wanting the child to be provided for in ways MOB feels unable to do. MOB reports concern also that at 43 years old, and with chronic health issues in MOB?s family, that MOB feels may face the same fate, which would potentially put MOB and baby in situations that MOB does not want for the baby. MOB held good eye contact when talking to this writer producer, engaged in conversation, affect appropriate smiling at times as well as crying at appropriate intervals in conversation. MOB expressing consistent reports to different staff bout intent for baby, and MOB being unaware and unprepared for a baby. MOB open to social work assistance in helping to facilitate an adoption plan for baby. Supportive listening, encouragement, and support provided to MOB this date. Did discuss with MOB risk for depression and grieving, despite MOB voicing to feel at peace with decision for adoption. Discussed counseling as a potential ongoing support, which MOB was open to taking information. PLAN: Continue to assist MOB with disposition for self and for baby. MOB intending to make an adoption plan for baby. -JORI Ruggiero, TELEVISION TUBE INSPECTOR
[2019-02-04] MEDS: Ibuprofen 600 MG Tablet PO (11:55)
[2019-02-04] MEDS: Senna/Docusate Sodium 1 Tablet PO (12:01)
[2019-02-04 12:05] VITALS: BP 126/74; PULSE 93; RESP 16; TEMP 36.2
[2019-02-04 14:00] VITALS: BP 119/68; PULSE 91; RESP 16; TEMP 36.4; O2SAT 96
--- NOTE | 2019-02-04 15:00 | CASEMGMT ---
Addendum entered and electronically signed by Jana Hill 02/05/19 16:30: No other needs requested or indicated for MOB's discharge home. angus Original Note: Social Work Labor and Delivery Unit Summary: Worked with mother/mother of baby (MOB) throughout this date regarding voiced intentions for an adoption plan for baby girl. Educated MOB to private adoption, agency adoption, or calling children services. MOB interested in agency adoption. Provided MOB multiple brochures of adoptions agencies services [place]: [facility], [facility], [facility], [facility], [facility]. Asked MOB to look through materials provided and this literary writer would be back to get online and view agency websites and prospective adoptive parents profiles. MOB voicing that one specification for adoptive parents is that wants baby to go to a home where the adoptive mother cannot biologically have own child. Returned to room. MOB expressed interested in learning more about [facility]. Pulled up this agencies website and allowed MOB to look around at prospective adoptive parent profiles. MOB identified a family, Sam and Macey Robledo. as the couple that MOB chooses for the baby. This literary writer suggested that MOB look at other profiles on the website, as well as pull up at least one more adoption agency. MOB declined and firmly stated that wants to go with this family. This literary writer respected MOB?s wishes not to explore other options further. Explored with MOB whether MOB wants to make initial phone call to [facility] for whether desires this literary writer?s assistance. MOB asks this literary writer to assist. Called [facility] at while sitting with MOB. Spoke with Jesi and referral initiated as well as identified MOB?s desire to have specific couple contacted for an adoption match. MOB signed releases of information for [facility], for both self and for baby. Completed [facility] Adoptive Checklist form. [facility] patient financial services to the room and completed Medicaid application with MOB as well as HCAP application. Patient associate financial planner asked about whether Medicaid should be applied for the baby. Called Jesi back. Jesi asks that [facility] NOT apply for medicaid for baby as [facility] will do so in [facility] and that all bills [facility] receives should be directed to the [facility] agency. Address provided for bills to be sent: [address] [place] [id number]. . Patient associate financial planner to make changes in baby?s account. Spoke with Etelvina Estrella, local adoption door opener. [phone]. Etelvina to be to [facility] around 1330. Met with Etelvina and MOB upon Etelvina?s arrival to the hospital. Discussed MOB?s voiced intent to continue with adoption plan. Discussed timeframe for MOB?s discharge as well as baby?s. Permanent surrender for baby cannot happen until Sunday afternoon. [facility] does have the capability of taking temporary custody of baby, if MOB so chooses to go this route. This would shorten hospital stay as baby will likely be ready for discharge before Sunday. This literary writer sat with MOB and Etelvina as Etelvina reviewed with MOB legal information that a mother needs to know in making an adoption plan. MOB was given opportunities to ask questions. Etelvina did contact the prospective adoptive parents prior to arriving to [facility] and the prospective adoptive parents will arrive to [facility] at 1500 or after. [facility], counselor list for this area, and depression information. MOB signed [facility] forms: Consent to care for infant (allowing [facility] or adoptive parents to be the decision makers in MOB?s absence) and from Permission for release of . Provided Etelvina from [facility] a letter of verification of for agency records when filing for Medicaid for baby. Spoke with MOB?s nurse as well as with weigh and charge worker and updated. Asked that a courtesy room be provided to the prospective adoptive parents as MOB would like the adoptive mother to be banded with second baby band, to be able to care for baby in MOB?s absence. Talked with MOB?s RN about MOB?s desires for a complimentary crib card and certificate as well as to be able to see baby prior to leaving. To this point MOB has been clear in intent not to provide hands on care to baby. Assessment: Through all interactions with MOB today, the MOB has remained calm and firm in decision to make an adoption plan. MOB has voiced that will not be one of ?those people? who change their minds. MOB reports to feel comfortable with decision, and consistent in reasoning behind intent. MOB appropriately tearful and as day went on showing more outward emotions. MOB held good eye contact, thoughts clear and logical, speech intact, affect and mood congruent. MOB also voicing much thanks for the help this literary writer offered, as well as for the support that [facility] staff has provided to MOB during hospital stay. MOB accepted resources offered today. MOB denies depression, anxiety, or thoughts of harm to self or others. MOB has also shared that she has let family members and friends know of what has happened, so will not have people to talk to if needed. Emotional support was offered to MOB throughout this date, allowed MOB time to reflect and share thoughts/feelings/reactions. Plan: MOB is discharging home today 02-04-2019. Baby remains until the 48 hour sandra and prospective adoptive parents will assume care of baby upon arrival, being given a courtesy room to do so. Social work to continue collaboration with [facility] on 02-05-19 for baby?s disposition. -UMBERTO Ruggiero, FLOORING SALESPERSON
[2019-02-04 18:41] VITALS: BP 121/77; PULSE 85; RESP 16; TEMP 36.6; O2SAT 98
[2019-02-04 20:32] VITALS: BP 115/69; PULSE 91; RESP 18; TEMP 36.1
[2019-02-06 13:36] LABS: Rapid Plasmin Reagin (RPR) NONREACTIVE (NONREACTIVE)
[2019-02-07 10:51] LABS: Pathology Specimen OB SEE PATHOLOGY REPORT
== END 2019-02-04 21:15 | disposition home or self-care (01) | DRG 806 ==
LOC: ED 13:07 → WP 13:07
PROVIDERS: Admitting Provider Obstetrics & Gynecology; Emergency Provider Emergency Medicine; Visit Provider Obstetrics & Gynecology
DX: O99.02 Anemia complicating childbirth (principal); O71.4 Obstetric high vaginal laceration alone; Z37.0 Single live birth; O09.30 Supervision of pregnancy with insufficient antenatal care, unspecified trimester; Z3A.00 Weeks of gestation of pregnancy not specified; D64.9 Anemia, unspecified
CPT/HCPCS: 80053; 80307; 83690; 84703; 85025; 86592; 86703; 86762; 86803; 86850; 86900; 87340; 87491; 87591; 88307; 99284; J7030; J2405

== ENCOUNTER 2019-02-09 08:39 | Inpatient (IN) | payer SELFPAY ==
--- NOTE | 2019-02-07 | OM_PTH ---
PATIENT: JOSE HARRIS LOC: MS3 U#:[id number] AGE/SX: 43/F ROOM: MN320 RE02/09/[address]: Dr. Jose Baltazar MD : 1975 BED: 1 DIS: 02/12/2019 SPEC #: [id number] RECD: 02/10/19 12:04 STATUS: VANESSA MARICARMEN #: [id number] GABY: 02/07/19 00:[address]: Jose Baltazar DEPT: SURGICAL PATHOLOGY RECD BY: Celio Espana ENTERED: 02/10/19 12:05 SP TYPE: OMENTUM OTHR DR: No Primary Care Phys Tissues: A - Omentum, NOS B - HERNIA C - Small intestine biopsy Procedures: Surgery Specimen Level II Surgery Specimen Level IV Surgery Specimen Level V HEADER OPERATION: Recurrent incisional ventral hernia repair, small bowel resection PRE-OP DIAGNOSIS: Recurrent ventral hernia with incarceration, small bowel obstruction TISSUE SUBMITTED: A - Omentum, B - Hernia sac, C - Small bowel MICROSCOPIC DIAGNOSIS A. Omentum, biopsy: Vascular congestion, minimal fibrosis and reactive change. B. Hernia sac, herniorrhaphy: Fibrosis and mild chronic inflammation. C. Small bowel, segmental resection: Mild chronic enteritis. Chronic and focal acute serositis with fibrinoid reactive change consistent with incarceration. AM:lisa 02/12/19 COMMENT Case has been reviewed in consultation with Dr. Camp who concurs with the above diagnosis. IDC:DIXON MICROSCOPIC DESCRIPTION Slides are reviewed. GROSS DESCRIPTION A - Received in fixative is one container labeled with the patient's name and designated omentum. The specimen consists of three variable sized pieces of yellow adipose tissue consistent with omentum that in aggregate measure 13 x 10 x 3 cm. Sections do not reveal any mass lesion. Sales Training Representative sections are submitted in one cassette. / SJ:lisa 02/10/19 B - Received in fixative is one container labeled with the patient's name and designated hernia sac. The specimen consists of three variable sized pieces of adipose tissue that in aggregate measure 13 x 10 x 3 cm. Sections do not reveal any mass lesion. Sales Training Representative sections are submitted in one cassette. / SJ:lisa 02/10/19 C - Received in fixative is one container labeled with the patient's name and designated small bowel. The specimen consists of a segment of bowel measuring 11 cm in length with attached mesenteric tissue. Both resection margins are stapled. The serosa is congested. No mucosal lesion is identified. Also present in the container is a second smaller segment of bowel measuring 2.5 cm in length with attached mesentery. Both resection margins are stapled. No mucosal lesion is identified. Also present in the container is a donut-shaped piece of tissue measuring 3 x 1.2 x 0.5 cm. Sections will be submitted after overnight fixation. / SJ:lisa 02/10/19 Sections of mesenteric tissue do not reveal any obviously enlarged lymph node. Sales Training Representative sections are submitted in six cassettes as follows: 1 - donut, 2 & 3 - smaller segment of bowel, 4-6 - larger segment of bowel (cassettes 5 & 6 also contain the attached mesenteric tissue. / SJ:lisa 02/11/19 TC:2 CPT: 63265, 23144, 93490
[2019-02-09] VITALS (8 sets, daily range): BP systolic 124–136; BP diastolic 76–85; PULSE 91–108; RESP 16–18; TEMP 36.4–36.8; O2SAT 94–98; BMI 30.4; BMI 31.1; BMI 31.2
--- NOTE | 2019-02-09 09:17 | CT_ITS ---
STUDY: CT ABDOMEN AND PELVIS WITHOUT CONTRAST REASON FOR EXAM: Female, 43 years old. Nausea vomiting diffuse abdominal pain for 1 day 6 days RADIATION DOSAGE (If Supplied By Facility): CTDIvol = ( 15.96 ) mGy, DLP = ( 897.06 ) mGycm TECHNIQUE: Transaxial images were obtained from the dome of the diaphragm to the symphysis pubis without oral contrast, and without intravenous contrast. Sagittal and coronal images were reconstructed. Individualized dose optimization techniques were used for this CT. COMPARISON: None. FINDINGS: The visualized lung bases are unremarkable. The visualized portions of the heart are within normal limits. Normal liver. There are 4 gallstones in the gallbladder each measuring 1.0 cm. Normal spleen. Normal pancreas. Normal bilateral adrenal glands. Normal right kidney. Normal left kidney. There is a fluid distended appearance of the stomach. There multiple distended loops of small bowel. There is herniation of small bowel into the left of midline abdominal wall hernia. The small bowel loops are distended up to 5 cm proximally and decompressed distally compatible with obstruction. Herniated into the right to periumbilical fat is a decompressed loop of transverse colon. The colon is decompressed for the most part. Distended small bowel loops with air-fluid levels measuring up to almost 5 cm adjacent to decompressed transverse colon. There is non-visualization of the appendix. Normal abdominal aorta. Normal inferior vena cava. Normal retroperitoneum. The bladder is decompressed. The uterus is enlarged consistent with recent uterus. There are large abdominal wall hernias. There is a left of midline periumbilical fatty hernia containing fat and small bowel with edema measuring approximately 7.0 x 4.7 x 6.2 cm. Small bowel extends into this left a midline focal area of opening measuring 3.3 cm. To the right of midline there is a larger opening of 4.4 cm there are which fat and transverse colon herniate measuring up to 9.9 x 4.6 x 4.5 cm. Collective measurement of these [id number] 2 hernias measures 18.4 x 6.8 x 11.6 cm. There is adjacent edema and lobulations of the fat. There is also edematous appearance of the midline skin of the umbilicus. There is mild mesenteric edema near the proximal small bowel. There is no free fluid or free air. There is straightening of the physiologic lordosis of the thoracolumbar spine. At the level of L4-L5 there is a broad disc osteophyte moderate neural foramina narrowing moderate central stenosis. CT/Abdomen/Pelvis without Cont IMPRESSION: High-grade small bowel obstruction secondary to incarcerated herniation of small bowel left of midline in a periumbilical hernia. Right to midline periumbilical herniation of large bowel. uterus. Cholelithiasis. N.B. : The above information has been verbally conveyed by Caprice Colin MD to Dr. Andreina MD, on 02/09/2019 10:09:53 (ET). Electronically Signed: Caprice Colin MD at 10:10 EDT Tel , Service support ,
--- NOTE | 2019-02-09 09:18 | ED.VIS.GEN ---
History of Present Illness Chief Complaint: Nausea/Vomiting Informant: Patient Onset: Days Narrative: Patient presents complaining of vomiting that began there 2 ago, she recently a few days ago spontaneously delivered vaginally a child while not realizing she was . She had no complications from the delivery she went home the day after her delivery she is unclear why she began having the vomiting the other day. She is having low output lochia, no urinary issues bowel habits are normal she is able to eat and drink no fever no cough she does have history of abdominal hernia anterior wall surgery but is been stable she denies any other past history no exposures to tainted food or sick individuals Past Medical History - Allergies and Home Meds Allergies/Adverse Reactions: Allergies Penicillins Allergy (Verified 02/09/19 08:40) Mat[place] Primary Care Physician: Care Physician,No Primary [Primary Care Provider] - Past Medical History: - - Abdominal wall hernia surgery recent spontaneous vaginal delivery of child as above Surgical History: - - Ventral hernia repair Smoking Status: Never smoker Review of Systems General: Denies: Chills, Fever, Sweats Eyes: Denies: Visual changes - bilaterally, Diplopia ENT: Denies: Rhinorrhea, Sore throat Cardiovascular: Denies: Chest pain, Palpitations Respiratory: Denies: Dyspnea, Cough, Dyspnea on exertion Gastrointestinal: Reports: Nausea, Vomiting. Denies: Abdominal pain, Diarrhea, Melena, Hematochezia Genitourinary: Denies: Dysuria, Hematuria, Frequency Musculoskeletal: Denies: Back pain, Extremity Pain Skin: Denies: Rash, Wounds Neurological: Denies: Headache, Weakness, Numbness Physical Exam Vital Signs/Narrative: Vital Signs Temp Pulse Resp BP Pulse Ox 02/09/19 08:40 97.5 F L 99 18 134/84 H 98 General: Well nourished, Well developed, No Acute Distress Head: Normocephalic, Atraumatic Eyes: Perrl, EOMI ENT: Moist mucous membranes, No rhinorrhea Neck: Supple, Nontender Cardiovascular: Regular rate, Regular rhythm, No murmurs Respiratory: No distress, CTA bilaterally, Chest nontender Abdomen: Soft, Nontender, Nondistended, Normal bowel sounds, Ventral hernia, - - Is a ventral hernia to the left inferior area of the umbilicus so about the 5 o'clock position is about 4 cm it is soft it is not obviously tender she indicates its been there before the rest the abdominal exam is unremarkable there is no rebound guarding organomegaly she cannot localize and indicates is no focal area of pain just rather a sense of diffuse intermittent discomfort and vomiting Back: Nontender, Normal Inspection Extremities: Nontender, No edema Skin: Normal color, No rash Neurological: Alert, Oriented x3, Cranial nerves II-XII grossly intact, Normal Strength, Normal Sensation Psychological: Normal affect, Normal Mood ED Disposition - Plan for ED Patient: Referrals: Care Physician,No Primary [Primary Care Provider] -
[2019-02-09 09:26] LABS: Absolute Lymphocyte Count 1.14 X10^3/uL (0.83-4.51); Absolute Neutrophil Count 10.2 X10^3/uL (2.0-7.7); Basophil# 0.03 X10^3/uL; Basophil% 0.2 % (0-1); Eosinophil# 0.02 X10^3/uL; Eosinophils% 0.2 % (0-5); Hematocrit 33.7 % (37-47); Hemoglobin 9.8 g/dL (12.0-15.0); Lymphocyte # 1.14 X10^3/ul (4.0); Lymphocyte % 9.3 % (19-41); Mean Corp Hgb Conc 29.1 g/dL (32-36); Mean Corpuscular Volume 65.4 fL (81-99); Mean Platelet Vol. 9.6 fl (6.2-12.0); Monocyte# 0.83 X10^3/uL; Monocyte% 6.7 % (0-10); NRBC Flagged by Analyzer 0 % (0-5); Neutrophil # 10.23 X10^3/uL (2.7-7.7); Platelet Count 578 K/mm3 (150-450); RBC Distribution Width CV 18.6 % (11.6-14.6); RBC Distribution Width SD 42.4 fl (35.1-43.9); Red Blood Count 5.15 M/mm3 (4.2-5.4); White Blood Count 12.3 K/mm3 (4.4-11.0)
[2019-02-09] MEDS: morphine 8 MG/ML Syringe IV ×2 (09:30→10:54)
[2019-02-09] MEDS: Ondansetron 4 MG/2 ML Vial IV ×2 (09:30→17:30)
[2019-02-09] MEDS: 0.9% Normal Saline 1,000 ML 1000 ML IV (09:32)
[2019-02-09 09:40] LABS: AST(SGOT) 15 U/L (15-37); Alanine Aminotransfer ALT/SGPT 16 U/L (13-56); Albumin, Serum 3.1 g/dL (3.2-5.0); Alkaline Phosphatase 99 U/L (45-117); Anion Gap 8 (5-15); BUN 12 mg/dL (7-18); BUN/Creat Ratio 19.1 RATIO (10-20); Bilirubin, Direct 0.12 mg/dL (0.00-0.30); Calcium,Total 9.8 mg/dL (8.5-10.1); Chloride 102 mmol/L (98-107); Creatinine, Serum 0.63 mg/dL (0.55-1.02); EST Glomerular Filtration Rate 110 mL/min (>60); Est Glom Filt Rate - Afr Amer 133 mL/min (>60); Estimated Creatinine Clearance 117.35 ml/min; Globulin 5.2 g/dL (2.2-4.2); Glucose 96 mg/dL (74-106); Lipase 71 U/L (73-393); Potassium 3.8 mmol/L (3.5-5.1); Protein, Total 8.3 g/dL (6.4-8.2); Sodium Level 136 mmol/L (136-145)
[2019-02-09 10:01] LABS: Mucous, Urine 0 SEEN /hpf (<or=2+)
[2019-02-09 10:02] LABS: Color, Urine Amber (Yellow); Glucose, Dipstick Normal (Normal); Ketone-Dipstick 5 mg/dl (Negative); Leukocyte Esterase-Dipstick 500 /ul (Negative); Nitrite-Dipstick Negative (Negative); Occult Blood-Urine 250 /ul (Negative); Protein-Dipstick 100 mg/dl (Negative); Specific Gravity, Urine 1.025 (1.002-1.030); Urine Bilirubin Dipstick 1 mg/dL (Negative); Urine Clarity Cloudy (Clear); Urine Urobilinogen 1 mg/dl (Normal)
--- NOTE | 2019-02-09 10:07 | RAD_ITS ---
We are attempting to reach an attending provider to discuss findings. An addendum with communication details will be sent when the communication is complete. STUDY: X-RAY - ABDOMEN/PELVIS REASON FOR EXAM: Female, 43 years old. NG tube placement TECHNIQUE: Single AP view of the abdomen. This study is of the lower chest and upper abdomen. COMPARISON: None. FINDINGS: NG tube is present the tip is just at the distal esophagus. This should be advanced at least 10 cm so that the side port is within the stomach. There are multiple distended loops of small bowel. RAD/Abdomen Single View (Portable) IMPRESSION: The tip of the NG tube is still in distal esophagus and should be advanced approximately 10 cm. Small bowel obstruction. Electronically Signed: Caprice Colin MD at 11:52 EDT Tel , Service support ,
[2019-02-09 10:09] LABS: Bacteria 1+ /hpf (None Seen); Red Blood Cells-Urine > 100 SEEN /hpf (0-5); Squamous Epithelial Cells - UA 0-5 SEEN /hpf (5-10); White Blood Cells 25-50 SEEN /hpf (0-5)
--- NOTE | 2019-02-09 10:09 | NURSING ---
DR GRIFFIN ROBERSON
[2019-02-09] MEDS: 0.9% Normal Saline 1,000 ML 999 ML IV (11:01)
--- NOTE | 2019-02-09 11:01 | NURSING ---
DR MOYA WITH PATIENT
--- NOTE | 2019-02-09 11:04 | PCM.HP.STD ---
Problem List (1) Recurrent ventral hernia with incarceration Status: Acute (2) SBO (small bowel obstruction) Status: Acute History of Present Illness Date of Admission: 02/09/19 The patient is a 43 year old F who had a vaginal delivery 5 days ago. Patient did not know she was and gave in the emergency room. Patient notes that for the last few weeks she is felt bulging in her abdomen. She says that she had a ventral hernia repair without mesh approximately 4 years ago. Patient notes that last night she began having more severe abdominal pain and nausea and vomiting. She says that she has not passed any flatus today or yesterday. 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 Denies: Chills, Fever HEENT: Denies: Difficulty Swallowing Cardiovascular: Denies: Chest Pain Respiratory: Denies: Cough, Shortness of Breath Gastrointestinal: Reports: Abdominal Pain, Diarrhea, Nausea, Vomiting Genitourinary: Denies: Dysuria Gynecological: Reports: Vaginal bleeding Musculoskeletal: Denies: Joint Tenderness Skin: Denies: Jaundice Neurological: Denies: Balance problems Hematologic/ Lymphatic: Denies: Anemia VTE Information - Inpt Only VTE Present on Admission: No VTE Mechan Device Prophylaxis: SCD's Patient Problems: Active and Suspected Problems (Last Updated 02/03/19 @ 12:46 by Eloise Talbot MD) Recurrent ventral hernia with incarceration (Acute) SBO (small bowel obstruction) (Acute) - Physical Exam General: Alert, Oriented x3 HEENT: Atraumatic Neck: No JVD Lungs: Normal air movement Abdomen: Soft, Tender, Hernia Skin: No rashes Neurological: Cranial nerves II-XII grossly intact Psych/Mental Status: Flat Affect Vital Signs Temp Pulse Resp BP Pulse Ox 97.5 F L 99 18 134/84 H 98 02/09/19 08:40 02/09/19 08:40 02/09/19 08:40 02/09/19 08:40 02/09/19 08:40 Oxygen Delivery Method Room Air Weight: 200 lb 2.876 oz Body Mass Index (BMI) 30.4 Laboratory Tests Past 24 Hrs 02/09/19 02/09/19 02/09/19 09:15 09:15 09:57 WBC 12.3 H RBC 5.15 Hgb 9.8 L Hct 33.7 L MCV 65.4 L MCH 19.0 L MCHC 29.1 L RDW Std Deviation 42.4 RDW Coeff of Crow 18.6 H Plt Count 578 H MPV 9.6 Immature Gran % (Auto) 0.600 Neut % (Auto) 83.0 H Lymph % (Auto) 9.3 L [place] % (Auto) 6.7 Eos % (Auto) 0.2 Baso % (Auto) 0.2 Absolute Neuts (auto) 10.2 H Absolute Lymphs (auto) 1.14 Nucleated RBC % 0 Sodium 136 Potassium 3.8 Chloride 102 Carbon Dioxide 26.0 Anion Gap 8 BUN 12 Creatinine 0.63 Estim Creat Clear Calc 117.35 Est GFR (MDRD) Af Amer 133 Est GFR (MDRD) Non-Af 110 BUN/Creatinine Ratio 19.1 Glucose 96 Calcium 9.8 Total Bilirubin 0.60 Direct Bilirubin 0.12 AST 15 ALT 16 Alkaline Phosphatase 99 Total Protein 8.3 H Albumin 3.1 L Globulin 5.2 H Lipase 71 L Urine Color Macey Urine Clarity Cloudy Urine pH 5.0 Ur Specific [place] 1.025 Urine Protein 100 H Urine Glucose (UA) Normal Urine Ketones 5 H Urine Occult Blood 250 H Urine Nitrite Negative Urine Bilirubin 1 H Urine Urobilinogen 1 H Ur Leukocyte Esterase 500 H Urine RBC > 100 SEEN Urine WBC 25-50 SEEN Ur Squamous Epith Cells 0-5 SEEN Urine Bacteria 1+ Urine Mucus 0 SEEN Clinical Impression(s) from Imaging Studies Abdomen/Pelvis CT 02/09/19 09:17 IMPRESSION: High-grade small bowel obstruction secondary to incarcerated herniation of small bowel left of midline in a periumbilical hernia. Right to midline periumbilical herniation of large bowel. uterus. Cholelithiasis. N.B. : The above information has been verbally conveyed by Caprice Colin MD to Dr. Andreina MD, on 02/09/2019 10:09:53 (ET). Electronically Signed: Caprice Colin MD at 10:10 EDT Tel , Service support , ADDENDUM: 02/09/19 1017 IMPRESSION: High-grade small bowel obstruction secondary to incarcerated herniation of small bowel left of midline in a periumbilical hernia. Right to midline periumbilical herniation of large bowel. uterus. Cholelithiasis. N.B. : The above information has been verbally conveyed by Caprice Colin MD to Dr. Andreina MD, on 02/09/2019 10:09:53 (ET). Electronically Signed: Caprice Colin MD at 10:10 EDT Tel , Service support , Assessment/Plan All Active Problems (Last Updated 02/03/19 @ 12:46 by Eloise Talbot MD) Vaginal delivery (Acute) Recurrent ventral hernia with incarceration (Acute) SBO (small bowel obstruction) (Acute) 43-year-old female with incarcerated recurrent ventral hernia with small bowel obstruction 1. The patient has CT scan that shows a complex hernia in the abdominal wall. The right side of the hernia contains transverse colon which is non-distended. The left side of the hernia contains a loop of small bowel which appears to be causing a high-grade small bowel obstruction. Patient does have elevated white count. I was unable to reduce either of the hernias with the patient in flat position in the emergency room. These hernias are incarcerated and possibly strangulated. I recommend surgery for reduction and repair. 2. I explained that this was emergency surgery and the goal of surgery was to return the bowel into the abdomen and it was possible that a resection may be warranted if there is any ischemic bowel. I also explained that if the colon was ischemic she would likely need a temporary colostomy. I also explained that I would likely be unable to perform a definitive repair if there is inflammation in the abdomen. I also discussed the use of biologic mesh if needed to cover the defect if I was unable to bring the tissue together. I explained the risks of the procedure including but not limited to bleeding, infection, injury to small bowel or colon, need for stoma, recurrence of hernia. The patient understands risks and is willing to proceed with surgery. 3. Patient has NG tube in place with stool-like contents. Wallace will be placed. She will get clindamycin as she is penicillin allergic. Plan for OR as soon as available. Jose Baltazar MD Pager: [facility] [address] [place] [address] [address] [place] [address] Office:
--- NOTE | 2019-02-09 16:16 | OP.PCM_ITS ---
Problem List (1) Recurrent ventral hernia with incarceration Status: Acute (2) SBO (small bowel obstruction) Status: Acute Report of Operation Date of Procedure: 02/09/19 Pre-Operative Diagnosis: 1. Recurrent incarcerated ventral hernia x2. 2. Small bowel obstruction Post-Operative Diagnosis: 1. Recurrent incisional ventral hernia with strangulation and incarceration of small bowel. 2. Second recurrent incisional ventral hernia with incarceration of colon. 3. Small bowel obstruction with ischemia of the small bowel Surgery/Procedure Performed:: 1. Recurrent incisional ventral hernia repair. 2. Recurrent incisional ventral hernia repair of second hernia. 3. Small bowel resection with primary anastomosis Description of Surgical Findings:: The patient had an incarcerated hernia right of the midline including the transverse colon. Patient also had a ventral hernia to the left of the midline which included small bowel causing a small bowel obstruction. The second of small bowel in the hernia was necrotic and ischemic and was resected. Specimen's removed: 1. Small bowel. 2. Omentum. 3. Hernia sac Drains: CIELO to bulb suction Estimated Blood Loss (mL): 100 Description of Procedure: The patient was brought back to the operating room and general anesthesia was induced. The patient's abdomen was prepped and draped in usual sterile fashion. A midline incision was made from superior to the umbilicus to the umbilicus. This was deepened to the subcutaneous tissue. Dissection was carried to the patient's left until the hernia sac was identified. The hernia sac was dissected free circumferentially and opened with Metzenbaum scissors. The hernia sac contained omentum and small bowel. The small bowel appeared dark and dusky. It was reduced into the abdomen. There were several areas where the omentum was adhesed to the hernia sac which was taken down. The hernia sac was resected. A finger sweep revealed the larger hernia to the left side which was known to contain colon. It also revealed a small hernia inferior and superior. The inferior and superior hernias were included in this hernia and opened. Next the patient's right sided hernia was dissected free of the subcutaneous tissue and that hernia sac was opened under direct visualization as well. The colon was included in this and it was adhesed tightly to the anterior hernia sac. The adhesions to the omentum were taken down and the colon was reduced into the abdomen. There were also several small hernias in the periphery of this larger hernia and several small areas of the hernia sac. The fascia inferior to this hernia was opened in a larger fashion using electrocautery in order to deliver the small bowel through it. The small bowel was delivered through it and inspected from ligament of Treitz to the distal small bowel. The incarcerated segment which was necrotic was in the proximal terminal ileum. Even with reduction it did not become viable and needed resection. A small window was made proximal and distal to this area using cautery and clamps. The linear stapler was placed above and below the segment and the small bowel was resected. The mesentery was taken using the impact LigaSure device. There was good hem ostasis. Next the tip of both staple lines of the small bowel was removed using scissors and the SIGIFREDO stapler was placed into the small bowel segments and the small bowel segments were lined up in an antimesenteric to antimesenteric fashion. The SIGIFREDO stapler was fired and removed. The staple line was inspected and there was no bleeding. Next the enterotomy was closed in a transverse fashion using a 60 TX stapler. Several silk sutures were placed into the staple line where there was bleeding. Next a suture was placed to approximate the crux of both staple lines. The mesenteric defect was then closed with a running 3-0 Vicryl suture. The abdomen was then irrigated and the small bowel was reduced into the abdomen. The transverse colon was once again inspected and appeared to be intact with no leaking or injury. Next the small defect on the patient's left was closed in a superior to inferior fashion with a running 0 Prolene suture. The larger defect on the patient's right was closed with 2-0 Prolene sutures starting at the top and bottom meeting in the middle. Every 2 cm and additional 0 Prolene suture was placed in an interrupted fashion. The subcutaneous tissue was irrigated and there was a large cavity. A small priti was made in the skin on the right side with a scalpel and a 15 Macedonian round drain was placed through this into the cavity. The drain was placed to bulb suction. The subcutaneous tissue was closed with interrupted 3-0 Vicryl sutures and the skin was closed with interrupted 4-0 Monocryl sutures and Steri-Strips. An abdominal binder was placed. Patient was then awoken and taken to PACU in stable condition. Patient had Wallace and NG placed before the surgery and NG was confirmed in place during the surgery. - Admit VTE Documentation VTE Present on Admission: No VTE Mechan Device Prophylaxis: SCD's
[2019-02-09] MEDS: 0.9% Normal Saline 1,000 ML 100 ML IV (17:30)
[2019-02-09] MEDS: 0.9% NaCl Peripheral Flush Adult/Peds IV (21:11)
[2019-02-09] MEDS: Ketorolac 15 MG/ML Vial IV (21:11)
[2019-02-10] MEDS: Morphine 2 MG/ML Syringe IV (00:01)
[2019-02-10] MEDS: 0.9% NaCl Peripheral Flush Adult/Peds IV ×2 (00:02→05:54)
[2019-02-10 03:10] VITALS: BP 124/75; PULSE 98; RESP 18; TEMP 36.5; O2SAT 97
[2019-02-10] MEDS: 0.9% Normal Saline 1,000 ML 100 ML IV ×2 (03:38→14:05)
[2019-02-10] MEDS: Ketorolac 15 MG/ML Vial IV ×3 (05:54→21:53)
[2019-02-10] MEDS: Ondansetron 4 MG/2 ML Vial IV (06:01)
[2019-02-10 06:02] LABS: Absolute Lymphocyte Count 1.07 X10^3/uL (0.83-4.51); Absolute Neutrophil Count 8.4 X10^3/uL (2.0-7.7); Basophil# 0.02 X10^3/uL; Basophil% 0.2 % (0-1); Eosinophil# 0.02 X10^3/uL; Eosinophils% 0.2 % (0-5); Hematocrit 31.8 % (37-47); Lymphocyte # 1.07 X10^3/ul (4.0); Mean Corp Hgb Conc 28.3 g/dL (32-36); Mean Corpuscular Hgb 19.3 pg (27.0-32.0); Mean Corpuscular Volume 68.2 fL (81-99); Monocyte# 1.13 X10^3/uL; Monocyte% 10.6 % (0-10); NRBC Flagged by Analyzer 0 % (0-5); Neutrophil # 8.39 X10^3/uL (2.7-7.7); Neutrophil % 78.5 % (47-70); Platelet Count 492 K/mm3 (150-450); RBC Distribution Width CV 18.9 % (11.6-14.6); Red Blood Count 4.66 M/mm3 (4.2-5.4); White Blood Count 10.7 K/mm3 (4.4-11.0)
[2019-02-10 06:36] LABS: Anion Gap 8 (5-15); BUN 10 mg/dL (7-18); BUN/Creat Ratio 15.7 RATIO (10-20); Calcium,Total 8.6 mg/dL (8.5-10.1); Chloride 108 mmol/L (98-107); Creatinine, Serum 0.64 mg/dL (0.55-1.02); EST Glomerular Filtration Rate 109 mL/min (>60); Est Glom Filt Rate - Afr Amer 131 mL/min (>60); Estimated Creatinine Clearance 115.51 ml/min; Glucose 87 mg/dL (74-106); Magnesium 2.1 mg/dL (1.6-2.6); Phosphorus 3.3 mg/dL (2.5-4.9); Sodium Level 141 mmol/L (136-145)
--- NOTE | 2019-02-10 07:55 | PCM.PN.SRG ---
Patient Problems: Active and Suspected Problems (Last Updated 02/03/19 @ 12:46 by Eloise Talbot MD) Recurrent ventral hernia with incarceration (Acute) SBO (small bowel obstruction) (Acute) Subjective: The patient reports that she is passing flatus. She says her abdominal pain is well controlled. - Physical Exam General: Alert, Oriented x3 Neck: No JVD Lungs: Normal air movement Cardiovascular: Regular rate, Regular Rhythm Abdomen: Soft, Non Tender, Non-Distended Vital Signs Temp Pulse Resp BP Pulse Ox 97.7 F L 98 18 124/75 H 97 02/10/19 03:10 02/10/19 03:10 02/10/19 03:10 02/10/19 03:10 02/10/19 03:10 Oxygen Flow Rate (L/min) 2 Oxygen Delivery Method Nasal Cannula Weight: 205 lb Body Mass Index (BMI) 31.1 Intake and Output for Last 24 Hours 02/08/19 02/09/19 02/10/19 23:59 23:59 23:59 Intake Total 1540 / 2314 1515 / 1515 Output Total 355 / 905 985 / 985 Balance 1185 / 1409 530 / 530 Laboratory Tests Past 24 Hrs 02/09/19 02/09/19 02/09/19 09:15 09:15 09:57 WBC 12.3 H RBC 5.15 Hgb 9.8 L Hct 33.7 L MCV 65.4 L MCH 19.0 L MCHC 29.1 L RDW Std Deviation 42.4 RDW Coeff of Crow 18.6 H Plt Count 578 H MPV 9.6 Immature Gran % (Auto) 0.600 Neut % (Auto) 83.0 H Lymph % (Auto) 9.3 L [place] % (Auto) 6.7 Eos % (Auto) 0.2 Baso % (Auto) 0.2 Absolute Neuts (auto) 10.2 H Absolute Lymphs (auto) 1.14 Nucleated RBC % 0 Sodium 136 Potassium 3.8 Chloride 102 Carbon Dioxide 26.0 Anion Gap 8 BUN 12 Creatinine 0.63 Estim Creat Clear Calc 117.35 Est GFR (MDRD) Af Amer 133 Est GFR (MDRD) Non-Af 110 BUN/Creatinine Ratio 19.1 Glucose 96 Calcium 9.8 Phosphorus Magnesium Total Bilirubin 0.60 Direct Bilirubin 0.12 AST 15 ALT 16 Alkaline Phosphatase 99 Total Protein 8.3 H Albumin 3.1 L Globulin 5.2 H Lipase 71 L Urine Color Macey Urine Clarity Cloudy Urine pH 5.0 Ur Specific [place] 1.025 Urine Protein 100 H Urine Glucose (UA) Normal Urine Ketones 5 H Urine Occult Blood 250 H Urine Nitrite Negative Urine Bilirubin 1 H Urine Urobilinogen 1 H Ur Leukocyte Esterase 500 H Urine RBC > 100 SEEN Urine WBC 25-50 SEEN Ur Squamous Epith Cells 0-5 SEEN Urine Bacteria 1+ Urine Mucus 0 SEEN 02/10/19 02/10/19 05:44 05:44 WBC 10.7 RBC 4.66 Hgb 9.0 L Hct 31.8 L MCV 68.2 L MCH 19.3 L MCHC 28.3 L RDW Std Deviation 45.0 H RDW Coeff of Crow 18.9 H Plt Count 492 H MPV 10.0 Immature Gran % (Auto) 0.500 Neut % (Auto) 78.5 H Lymph % (Auto) 10.0 L [place] % (Auto) 10.6 H Eos % (Auto) 0.2 Baso % (Auto) 0.2 Absolute Neuts (auto) 8.4 H Absolute Lymphs (auto) 1.07 Nucleated RBC % 0 Sodium 141 Potassium 4.0 Chloride 108 H Carbon Dioxide 25.0 Anion Gap 8 BUN 10 Creatinine 0.64 Estim Creat Clear Calc 115.51 Est GFR (MDRD) Af Amer 131 Est GFR (MDRD) Non-Af 109 BUN/Creatinine Ratio 15.7 Glucose 87 Calcium 8.6 Phosphorus 3.3 Magnesium 2.1 Total Bilirubin Direct Bilirubin AST ALT Alkaline Phosphatase Total Protein Albumin Globulin Lipase Urine Color Urine Clarity Urine pH Ur Specific [place] Urine Protein Urine Glucose (UA) Urine Ketones Urine Occult Blood Urine Nitrite Urine Bilirubin Urine Urobilinogen Ur Leukocyte Esterase Urine RBC Urine WBC Ur Squamous Epith Cells Urine Bacteria Urine Mucus Medical Necessity - Tobacco Use Smoking Status: Never smoker Assessment/Plan All Active Problems (Last Updated 02/03/19 @ 12:46 by Eloise Talbot MD) Vaginal delivery (Acute) Recurrent ventral hernia with incarceration (Acute) SBO (small bowel obstruction) (Acute) 43-year-old female status post ventral hernia repair with small bowel resection for small bowel obstruction and strangulation of small bowel. 1. Patient reports that she has been getting out of bed. She had good urine output overnight. She says she is passing flatus. Her NG appears clear but she is also been having ice chips and sips. I will keep her NG in until this afternoon and possibly remove it today. Due to small bowel resection I would like to hold off before starting a diet at least 1 more day. I will DC her Wallace. Toradol for pain. Morphine supplementation. SCDs and Lovenox. Jose Baltazar MD Pager: [facility] [address] [place] [address], [address] [place] [address] Office:
--- NOTE | 2019-02-10 10:40 | CASEMGMT ---
RN MARNI Face to Face with patient for initial transition planning/care coordination assessment. RN CM introduced self and role at [facility]. Patient lying in bed, alert and oriented. Patient willing to participate in assessment and is able to answer all questions appropriately. Care providers, pharmacy, and demographics verified. Patient wishes to discharge home, denies need for home health at this time. Patient states she has no further needs or concerns at this time. CM to follow for discharge planning needs that may arise. PCP: None, list of PCPs provided Specialists: None Preferred Pharmacy: [facility] Insurance: Self pay Prescription Benefit: None Living Will/HPOA: None LNOK: Brother Living Arrangements: Patient lives with 2 roommates in 2 level apartment. Patient independent at home. Patient states she may stay will bother at discharge. Transportation: Self/family DME/HHC: Patient denies any DME or previous HHC. Disposition Plan: Patient to discharge home with family support and follow-up plans in place. Jazzy VERA, RN, CM
[2019-02-10 11:02] VITALS: BP 115/62; PULSE 95; RESP 18; TEMP 37.4; O2SAT 97
[2019-02-10] MEDS: Enoxaparin 40 MG/0.4 ML Syringe SC (11:04)
--- NOTE | 2019-02-10 13:20 | CASEMGMT ---
Social Work Note Pt is listed as self-pay. SW reviewed PFS notes and PFS saw pt and completed HCAP application. SW reviewed previous visits and pt was at [facility] recently with a unknown and delivery and was in [facility] and worked with Suhas SHIPMAN. Per notes, pt delivered a baby and placed baby up for adoption and was discharged home. SW met with pt to check in with pt. SW introduced self and role at [facility]. Pt is alert and orientated x3. SW informed pt that this worker works along Suhas Tuluksak in [facility] and was aware that pt was at [facility] recently and of pt's situation. Pt states that she is doing well at home. Pt states she went back to living with her two roommates and have been handling things ok. SW specifically asked pt about any grief and depression. Pt denied currently any grief or depression. Pt denied any suicidal/homicidal thoughts/plans/ideations. Pt states that she has told all of her family about her recent hospitalization but couldn't specifically tell this worker any specific family member. Pt states that she has reached out to multiple family members and feels that she has received good support. Pt states she also joined a support group that talks about adoption for children. Pt states that she gets to go back to work March 17 and she likes her job. Pt confirms that PFS completed HCAP with pt today and confirms that she completed Medicaid application at her last visit to [facility]. Pt denied hearing anything regarding her medicaid at this time. Pt confirms that she was given counseling resources and states she's never been to counseling before, denied wanting additional counseling resources at this time. SW informed pt that this worker was updated by Suhas SHIPMAN that she forgot to provide pt with list of family doctors. This worker provided pt with list of family doctors and information on [facility]. Pt confirms that she will be following up with Dr. Escobar for OB appointments. Pt denied additional needs or concerns at this time. Jazzy Escobar FREIGHT BROKER, [employer]
[2019-02-10 15:21] VITALS: BP 118/63; PULSE 93; RESP 16; TEMP 36.9; O2SAT 97
[2019-02-10 21:51] VITALS: BP 132/81; PULSE 97; RESP 18; TEMP 37; O2SAT 95
[2019-02-10 22:00] VITALS: PULSE 97; RESP 18; O2SAT 95
[2019-02-11] MEDS: 0.9% Normal Saline 1,000 ML 100 ML IV (00:12)
[2019-02-11 03:44] VITALS: BP 120/74; PULSE 89; RESP 18; TEMP 36.8; O2SAT 94
[2019-02-11 03:50] VITALS: RESP 18; O2SAT 94
[2019-02-11 05:52] LABS: Absolute Lymphocyte Count 1.55 X10^3/uL (0.83-4.51); Absolute Neutrophil Count 5.3 X10^3/uL (2.0-7.7); Basophil# 0.02 X10^3/uL; Basophil% 0.2 % (0-1); Eosinophil# 0.15 X10^3/uL; Eosinophils% 1.8 % (0-5); Hematocrit 25.2 % (37-47); Hemoglobin 7.2 g/dL (12.0-15.0); Lymphocyte # 1.55 X10^3/ul (4.0); Lymphocyte % 18.9 % (19-41); Mean Corp Hgb Conc 28.6 g/dL (32-36); Mean Corpuscular Hgb 19.1 pg (27.0-32.0); Mean Platelet Vol. 10.1 fl (6.2-12.0); Monocyte# 1.07 X10^3/uL; Monocyte% 13.1 % (0-10); NRBC Flagged by Analyzer 0 % (0-5); Neutrophil # 5.34 X10^3/uL (2.7-7.7); Neutrophil % 65.4 % (47-70); Platelet Count 389 K/mm3 (150-450); RBC Distribution Width CV 18.9 % (11.6-14.6); Red Blood Count 3.76 M/mm3 (4.2-5.4); White Blood Count 8.2 K/mm3 (4.4-11.0)
[2019-02-11] MEDS: Ketorolac 15 MG/ML Vial IV ×3 (05:53→21:19)
[2019-02-11 06:10] LABS: Anion Gap 7 (5-15); BUN 9 mg/dL (7-18); BUN/Creat Ratio 17.6 RATIO (10-20); Calcium,Total 7.9 mg/dL (8.5-10.1); Chloride 111 mmol/L (98-107); Creatinine, Serum 0.51 mg/dL (0.55-1.02); EST Glomerular Filtration Rate 139 mL/min (>60); Est Glom Filt Rate - Afr Amer 169 mL/min (>60); Estimated Creatinine Clearance 144.96 ml/min; Glucose 75 mg/dL (74-106); Potassium 3.6 mmol/L (3.5-5.1); Sodium Level 143 mmol/L (136-145)
[2019-02-11 07:28] VITALS: O2SAT 95
--- NOTE | 2019-02-11 07:47 | PN.SURG_ITS ---
Patient Problems: Active and Suspected Problems (Last Updated 02/03/19 @ 12:46 by Eloise Escobar MD) Recurrent ventral hernia with incarceration (Acute) SBO (small bowel obstruction) (Acute) Subjective: Patient reports she is passing flatus. She has no nausea or vomiting. Abdominal pain is well controlled. - Physical Exam General: Alert, Oriented x3 Lungs: Normal air movement Cardiovascular: Regular rate, Regular Rhythm Abdomen: Soft, Non Tender, Non-Distended Vital Signs Temp Pulse Resp BP Pulse Ox 98.2 F 89 18 120/74 94 02/11/19 03:44 02/11/19 03:44 02/11/19 03:50 02/11/19 03:44 02/11/19 03:50 Oxygen Flow Rate (L/min) 2 Oxygen Delivery Method Nasal Cannula Weight: 205 lb Body Mass Index (BMI) 31.1 Intake and Output for Last 24 Hours 02/09/19 02/10/19 02/11/19 23:59 23:59 23:59 Intake Total 1540 / 2314 2442 / 2442 1555 / 1555 Output Total 355 / 905 1555 / 1555 810 / 810 Balance 1185 / 1409 887 / 887 745 / 745 Laboratory Tests Past 24 Hrs 02/11/19 02/11/19 05:10 05:10 WBC 8.2 RBC 3.76 L Hgb 7.2 L Hct 25.2 L MCV 67.0 L MCH 19.1 L MCHC 28.6 L RDW Std Deviation 45.0 H RDW Coeff of Crow 18.9 H Plt Count 389 MPV 10.1 Immature Gran % (Auto) 0.600 Neut % (Auto) 65.4 Lymph % (Auto) 18.9 L [place] % (Auto) 13.1 H Eos % (Auto) 1.8 Baso % (Auto) 0.2 Absolute Neuts (auto) 5.3 Absolute Lymphs (auto) 1.55 Nucleated RBC % 0 Sodium 143 Potassium 3.6 Chloride 111 H Carbon Dioxide 25.0 Anion Gap 7 BUN 9 Creatinine 0.51 L Estim Creat Clear Calc 144.96 Est GFR (MDRD) Af Amer 169 Est GFR (MDRD) Non-Af 139 BUN/Creatinine Ratio 17.6 Glucose 75 Calcium 7.9 L Medical Necessity - Tobacco Use Smoking Status: Never smoker Assessment/Plan All Active Problems (Last Updated 02/03/19 @ 12:46 by Eloise Talbot MD) Vaginal delivery (Acute) Recurrent ventral hernia with incarceration (Acute) SBO (small bowel obstruction) (Acute) 43-year-old female status post ventral hernia repair and small bowel resection, POD 2 1. Patient reports passing flatus and having no nausea or vomiting. NG came out yesterday. I will start on clear liquids today and advance as tolerated. I decreased her IV fluid level. White count and hemoglobin stable. Jose Baltazar MD Pager: [facility] [address] [place] [address], [address] [place] [address] Office:
[2019-02-11 09:48] VITALS: BP 120/78; PULSE 87; RESP 18; TEMP 36.7; O2SAT 94
[2019-02-11] MEDS: 0.9% Normal Saline 1,000 ML 50 ML IV (09:51)
[2019-02-11] MEDS: Enoxaparin 40 MG/0.4 ML Syringe SC (09:51)
[2019-02-11 12:19] LABS: Hematocrit 25.3 % (37-47); Hemoglobin 7.1 g/dL (12.0-15.0)
[2019-02-11 15:00] VITALS: BP 126/79; PULSE 87; RESP 16; TEMP 36.5; O2SAT 96
[2019-02-11] MEDS: 0.9% NaCl Peripheral Flush Adult/Peds IV ×2 (15:04→21:21)
[2019-02-11 20:40] VITALS: BP 134/91; PULSE 88; RESP 18; TEMP 36.4; O2SAT 95
[2019-02-12 02:40] VITALS: BP 117/75; PULSE 82; RESP 18; TEMP 36.3; O2SAT 93
[2019-02-12 05:53] LABS: Absolute Lymphocyte Count 1.65 X10^3/uL (0.83-4.51); Absolute Neutrophil Count 5.6 X10^3/uL (2.0-7.7); Basophil# 0.03 X10^3/uL; Basophil% 0.4 % (0-1); Eosinophils% 3.5 % (0-5); Hematocrit 24.5 % (37-47); Hemoglobin 7.1 g/dL (12.0-15.0); Lymphocyte # 1.65 X10^3/ul (4.0); Lymphocyte % 19.3 % (19-41); Mean Corpuscular Hgb 19.3 pg (27.0-32.0); Mean Corpuscular Volume 66.6 fL (81-99); Mean Platelet Vol. 10.2 fl (6.2-12.0); Monocyte# 0.88 X10^3/uL; Monocyte% 10.3 % (0-10); NRBC Flagged by Analyzer 0 % (0-5); Neutrophil # 5.58 X10^3/uL (2.7-7.7); Neutrophil % 65.4 % (47-70); Platelet Count 372 K/mm3 (150-450); RBC Distribution Width SD 45.4 fl (35.1-43.9); Red Blood Count 3.68 M/mm3 (4.2-5.4); White Blood Count 8.5 K/mm3 (4.4-11.0)
[2019-02-12 06:19] LABS: Anion Gap 4 (5-15); BUN 7 mg/dL (7-18); BUN/Creat Ratio 15.2 RATIO (10-20); Calcium,Total 8.2 mg/dL (8.5-10.1); Chloride 106 mmol/L (98-107); Creatinine, Serum 0.46 mg/dL (0.55-1.02); EST Glomerular Filtration Rate 157 mL/min (>60); Est Glom Filt Rate - Afr Amer 190 mL/min (>60); Estimated Creatinine Clearance 160.71 ml/min; Glucose 78 mg/dL (74-106); Potassium 3.3 mmol/L (3.5-5.1); Sodium Level 138 mmol/L (136-145)
[2019-02-12 07:42] VITALS: O2SAT 94
--- NOTE | 2019-02-12 08:59 | PN.SURG_ITS ---
Patient Problems: Active and Suspected Problems (Last Updated 02/03/19 @ 12:46 by Eloise Escobar MD) Recurrent ventral hernia with incarceration (Acute) SBO (small bowel obstruction) (Acute) Subjective: Patient tolerating full liquids and having tolerable abdominal pain. Patient had a bowel movement which she describes as loose. She is passing flatus. - Physical Exam General: Alert, Oriented x3 Neck: No JVD Lungs: Normal air movement Cardiovascular: Regular rate, Regular Rhythm Abdomen: Soft, Non-Distended Vital Signs Temp Pulse Resp BP Pulse Ox 97.3 F L 82 18 117/75 94 02/12/19 02:40 02/12/19 02:40 02/12/19 02:40 02/12/19 02:40 02/12/19 07:42 Oxygen Flow Rate (L/min) 2 Oxygen Delivery Method Room Air Weight: 205 lb Body Mass Index (BMI) 31.1 Intake and Output for Last 24 Hours 02/10/19 02/11/19 02/12/19 23:59 23:59 23:59 Intake Total 2442 / 2442 2785 / 2785 Output Total 1555 / 1555 1670 / 1670 255 / 255 Balance 887 / 887 1115 / 1115 -255 / -255 Laboratory Tests Past 24 Hrs 02/11/19 02/12/19 02/12/19 11:55 05:15 05:15 WBC 8.5 RBC 3.68 L Hgb 7.1 L 7.1 L Hct 25.3 L 24.5 L MCV 66.6 L MCH 19.3 L MCHC 29.0 L RDW Std Deviation 45.4 H RDW Coeff of Crow 19.0 H Plt Count 372 MPV 10.2 Immature Gran % (Auto) 1.100 H Neut % (Auto) 65.4 Lymph % (Auto) 19.3 [place] % (Auto) 10.3 H Eos % (Auto) 3.5 Baso % (Auto) 0.4 Absolute Neuts (auto) 5.6 Absolute Lymphs (auto) 1.65 Nucleated RBC % 0 Sodium 138 Potassium 3.3 L Chloride 106 Carbon Dioxide 28.0 Anion Gap 4 L BUN 7 Creatinine 0.46 L Estim Creat Clear Calc 160.71 Est GFR (MDRD) Af Amer 190 Est GFR (MDRD) Non-Af 157 BUN/Creatinine Ratio 15.2 Glucose 78 Calcium 8.2 L Medical Necessity - Tobacco Use Smoking Status: Never smoker Assessment/Plan All Active Problems (Last Updated 02/03/19 @ 12:46 by Eloise Talbot MD) Vaginal delivery (Acute) Recurrent ventral hernia with incarceration (Acute) SBO (small bowel obstruction) (Acute) 43-year-old female status post small bowel resection and ventral hernia repair 1. Patient is doing well today. I will advance her diet and I removed her drain at the bedside. If she tolerates diet she can be discharged home today. I advised her not to do any heavy lifting for 6 weeks. Follow-up with me in 1 to 2 weeks. Jose Baltazar MD Pager: [facility] [address] [place] [address] [address] [place] [address] Office:
--- NOTE | 2019-02-12 09:01 | PCM.DC.HER ---
Discharge Diet: Light diet - advance as tolerated Discharge Activity: May Drive, May Shower Lifting Restrictions: 20 pounds for 6 weeks. Additional Activity Instructions:: Climbing stairs is fine, walking is encouraged. Sitting in bed may be uncomfortable. Sitting up using your lateral muscles (sitting up sideways) is usually more comfortable. Pain medications may cause nausea, you should typically eat light foods as you take your pain medications. Pain medications may also cause constipation. If you have difficulty with this, discuss with your doctor. Call your doctor if your incision/area has: Continuous Slow Oozing, Sudden Increased Bleeding, Increased Pain/ Swelling, Increased Redness, Foul Smelling Discharge Call your doctor if you observe: Fever of 101 or Higher Suture Line Care: Avoid Pulling/Pushing, Avoid Pinching/Bending Cleanse incision/area with: Soap & Water Allergies/Adverse Reactions: Allergies Penicillins Allergy (Verified 02/09/19 08:40) Hives Medications to take at Discharge Hydrocodone Bitart/Apap 5-325 [[place] 5/325] 1 - 2 tablet PO Q4H PRN PRN 7 Days #30 tablet 02/12/19 The following prescriptions were given: Hydrocodone Bitart/Apap 5-325 [[place] 5/325] 1 - 2 tablet PO Q4H PRN PRN 7 Days #30 tablet PRN Reason: Severe Pain (-04/17) Transmission Status: Received by [facility] Primary Care Physician: Care Physician,No Primary [Primary Care Provider] - Test Results: Test results from this visit will be discussed in further detail at your follow-up appointment, if applicable. Please Follow Up With: Jose Baltazar MD When: Please call to schedule 1-2 week follow up appointment. [phone]
--- NOTE | 2019-02-12 09:03 | DS.PCM_ITS ---
Discharge Date and Diagnosis - Problem List Patient Problems: Active and Suspected Problems (Last Updated 02/03/19 @ 12:46 by Eloise Escobar MD) Recurrent ventral hernia with incarceration (Acute) SBO (small bowel obstruction) (Acute) Date of Admission: 02/09/19 Date of Discharge: 02/12/19 - Primary Discharge Diagnosis Active and Suspected Problems (Last Updated 02/03/19 @ 12:46 by Eloise Escobar MD) Recurrent ventral hernia with incarceration (Acute) SBO (small bowel obstruction) (Acute) Hospital Course and Treatment Imaging Results: Clinical Impression(s) from Imaging Studies Abdomen/Pelvis CT 02/09/19 09:17 IMPRESSION: High-grade small bowel obstruction secondary to incarcerated herniation of small bowel left of midline in a periumbilical hernia. Right to midline periumbilical herniation of large bowel. uterus. Cholelithiasis. N.B. : The above information has been verbally conveyed by Caprice Colin MD to Dr. Andreina MD, on 02/09/2019 10:09:53 (ET). Electronically Signed: Caprice Colin MD at 10:10 EDT Tel , Service support , ADDENDUM: 02/09/19 1017 IMPRESSION: High-grade small bowel obstruction secondary to incarcerated herniation of small bowel left of midline in a periumbilical hernia. Right to midline periumbilical herniation of large bowel. uterus. Cholelithiasis. N.B. : The above information has been verbally conveyed by Caprice Colin MD to Dr. Andreina MD, on 02/09/2019 10:09:53 (ET). Electronically Signed: Caprice Colin MD at 10:10 EDT Tel , Service support , KUB X-Ray 02/09/19 10:07 IMPRESSION: The tip of the NG tube is still in distal esophagus and should be advanced approximately 10 cm. Small bowel obstruction. Electronically Signed: Caprice Colin MD at 11:52 EDT Tel , Service support , ADDENDUM: 02/09/19 1208 IMPRESSION: The tip of the NG tube is still in distal esophagus and should be advanced approximately 10 cm. Small bowel obstruction. N.B. : The above information has been verbally conveyed by Caprice Colin MD to Tracy Hdz MD, on 02/09/2019 12:01:45 (ET). Electronically Signed: Caprice Colin MD at 11:52 EDT Tel , Service support , Operations: - - Incarcerated ventral hernia repair with small bowel resection Procedures: None Summary of Care Provided: The patient is a 43 year old F presented to the emergency room with small bowel obstruction. CT scan revealed several hernias incarcerated including the transverse colon and a loop of small bowel causing obstruction. Patient was taken to operating room and small bowel obstruction was relieved and small bowel resection occurred due to necrotic bowel. Ventral hernias were repaired primarily with suture. Patient was admitted to the floor postoperatively and as her condition improved she was slowly started on a diet. She was discharged home in stable condition tolerating a diet with bowel movement and flatus. Patient Problems: Active and Suspected Problems (Last Updated 02/03/19 @ 12:46 by Eloise Escobar MD) Recurrent ventral hernia with incarceration (Acute) SBO (small bowel obstruction) (Acute) - Physical Exam Vital Signs Temp Pulse Resp BP Pulse Ox 97.3 F L 82 18 117/75 94 02/12/19 02:40 02/12/19 02:40 02/12/19 02:40 02/12/19 02:40 02/12/19 07:42 Oxygen Flow Rate (L/min) 2 Oxygen Delivery Method Room Air Weight: 205 lb Body Mass Index (BMI) 31.1 Intake and Output for Last 24 Hours 02/10/19 02/11/19 02/12/19 23:59 23:59 23:59 Intake Total 2442 / 2442 2785 / 2785 Output Total 1555 / 1555 1670 / 1670 255 / 255 Balance 887 / 887 1115 / 1115 -255 / -255 Laboratory Tests Past 24 Hrs 02/11/19 02/12/19 02/12/19 11:55 05:15 05:15 WBC 8.5 RBC 3.68 L Hgb 7.1 L 7.1 L Hct 25.3 L 24.5 L MCV 66.6 L MCH 19.3 L MCHC 29.0 L RDW Std Deviation 45.4 H RDW Coeff of Crow 19.0 H Plt Count 372 MPV 10.2 Immature Gran % (Auto) 1.100 H Neut % (Auto) 65.4 Lymph % (Auto) 19.3 [place] % (Auto) 10.3 H Eos % (Auto) 3.5 Baso % (Auto) 0.4 Absolute Neuts (auto) 5.6 Absolute Lymphs (auto) 1.65 Nucleated RBC % 0 Sodium 138 Potassium 3.3 L Chloride 106 Carbon Dioxide 28.0 Anion Gap 4 L BUN 7 Creatinine 0.46 L Estim Creat Clear Calc 160.71 Est GFR (MDRD) Af Amer 190 Est GFR (MDRD) Non-Af 157 BUN/Creatinine Ratio 15.2 Glucose 78 Calcium 8.2 L Discharge Diet: Light diet - advance as tolerated Discharge Activity: May Drive, May Shower Additional Activity Instructions:: Climbing stairs is fine, walking is encouraged. Sitting in bed may be uncomfortable. Sitting up using your lateral muscles (sitting up sideways) is usually more comfortable. Pain medications may cause nausea, you should typically eat light foods as you take your pain medications. Pain medications may also cause constipation. If you have difficulty with this, discuss with your doctor. Call your doctor if your incision/area has: Continuous Slow Oozing, Sudden Increased Bleeding, Increased Pain/ Swelling, Increased Redness, Foul Smelling Discharge Call your doctor if you observe: Fever of 101 or Higher Suture Line Care: Avoid Pulling/Pushing, Avoid Pinching/Bending Cleanse incision/area with: Soap & Water Home Medications: Medications to take at Discharge Hydrocodone Bitart/Apap 5-325 [[place] 5/325] 1 - 2 tablet PO Q4H PRN PRN 7 Days #30 tablet 02/12/19 Following Prescrptions Were Given to Patient: Hydrocodone Bitart/Apap 5-325 [[place] 5/325] 1 - 2 tablet PO Q4H PRN PRN 7 Days #30 tablet PRN Reason: Severe Pain (-04/17) Transmission Status: Received by [facility] Primary Care Physician: Care Physician,No Primary [Primary Care Provider] - Please Follow Up With: Jose Baltazar MD When: Please call to schedule 1-2 week follow up appointment. [phone] Medical Necessity - Tobacco Use Smoking Status: Never smoker Meaningful Use Info Meaningful Use Diagnoses (Choose all that apply): None applicable
[2019-02-12] MEDS: Pantoprazole Sodium 40 MG Tablet PO (10:12)
[2019-02-12] MEDS: Enoxaparin 40 MG/0.4 ML Syringe SC (10:12)
[2019-02-12 11:15] VITALS: BP 127/68; PULSE 96; RESP 16; TEMP 36.6; O2SAT 98
[2019-02-12 14:40] VITALS: BP 139/83; PULSE 89; RESP 18; TEMP 36.6; O2SAT 97
== END 2019-02-12 16:30 | disposition home or self-care (01) | DRG 769 ==
LOC: ED 09:09 → SDC 11:02 → AC 11:04 → MS3 02-10 07:41 → SDC 02-11 08:49 → MS3 02-11 08:49
PROVIDERS: Admitting Provider Surgery; Emergency Provider Emergency Medicine; Visit Provider Surgery
PROC: 0WQF0ZZ Repair Abdominal Wall, Open Approach (ICD-10-PCS; CPT 49000; principal; 2019-02-09 12:00)
DX: O90.89 Other complications of the puerperium, not elsewhere classified (principal); K55.029 Acute infarction of small intestine, extent unspecified; K43.0 Incisional hernia with obstruction, without gangrene; Z88.0 Allergy status to penicillin
CPT/HCPCS: 36415; 74018; 74176; 80048; 80076; 81001; 83690; 83735; 84100; 85014; 85018; 85025; 88302; 88305; 88307; 99285; J7030; J7050; A4216; J2405

== ENCOUNTER 2019-02-23 08:32 | Emergency (ER) | payer SELFPAY ==
[2019-02-09 17:02] VITALS: BMI 31.1
[2019-02-23 08:34] VITALS: BP 124/85; PULSE 116; RESP 17; TEMP 37.7; O2SAT 93; BMI 29.2
[2019-02-23 08:44] VITALS: PULSE 115; RESP 18; O2SAT 95
[2019-02-23 08:48] VITALS: BP 124/85; PULSE 101; RESP 18; TEMP 37.7; O2SAT 95
--- NOTE | 2019-02-23 09:45 | ED.VIS.GEN ---
History of Present Illness Chief Complaint: Fever Informant: Patient Onset: Yesterday Narrative: Patient presents to the ED stating last night she felt as though she had a fever. She did not check her temperature. She did have some chills associated with this. She was concerned as 2 weeks ago she had ventral hernia repair in 3 weeks ago she had a uncomplicated vaginal delivery. This morning, she had reviewed her discharge instructions and they said for her to be evaluated if she develops fever. She is currently asymptomatic. She denies any cough, abdominal pain, nausea, vomiting, changes in bowel movements, or urinary symptoms. Past Medical History - Allergies and Home Meds Allergies/Adverse Reactions: Allergies Penicillins Allergy (Verified 02/23/19 08:33) Hives Primary Care Physician: Care Physician,No Primary [Primary Care Provider] - Surgical History: - - Ventral hernia repair Smoking Status: Never smoker - Family History Maternal Family History: Reports: No pertinent history Review of Systems General: Reports: Fever - Subjective last night. Denies: Chills, Sweats Eyes: Denies: Visual changes - bilaterally, Diplopia ENT: Denies: Rhinorrhea, Sore throat Cardiovascular: Denies: Chest pain, Palpitations Respiratory: Denies: Dyspnea, Cough, Dyspnea on exertion Gastrointestinal: Denies: Abdominal pain, Nausea, Vomiting, Diarrhea, Melena, Hematochezia Genitourinary: Denies: Dysuria, Hematuria, Frequency Musculoskeletal: Denies: Back pain, Extremity Pain Skin: Denies: Rash, Wounds Neurological: Denies: Headache, Weakness, Numbness Physical Exam Vital Signs/Narrative: Vital Signs Temp Pulse Resp BP Pulse Ox 02/23/19 08:48 99.9 F H 101 H 18 124/85 H 95 02/23/19 08:44 115 H 18 95 02/23/19 08:34 99.9 F H 116 H 17 124/85 H 93 Inital Vital Signs reviewed: Yes General: Well nourished, Well developed, No Acute Distress Head: Normocephalic, Atraumatic Eyes: Perrl, EOMI ENT: Moist mucous membranes, No rhinorrhea Neck: Supple, Nontender Cardiovascular: Regular rate, Regular rhythm, No murmurs Respiratory: No distress, CTA bilaterally, Chest nontender Abdomen: Soft, Nontender, Nondistended, Normal bowel sounds Back: Nontender, Normal Inspection Extremities: Nontender, No edema Skin: Normal color, No rash, - - Umbilical hernia repair site is clean dry and intact. No erythema, abscess, or wound dehiscence. Neurological: Alert, Oriented x3, Cranial nerves II-XII grossly intact, Normal Strength, Normal Sensation Psychological: Normal affect, Normal Mood Diagnostic/Tx/Re-eval - Medical Decision Making Patient presents to the ED with concern for fever last night subjectively. Upon arrival, she appears well nontoxic. Her temperature was mildly elevated at 99.9 ?F. Examination of postoperative hernia repair wound is clean dry and intact with no secondary signs of cellulitis, abscess, or wound dehiscence. Abdomen is soft and nontender. Laboratory studies are unremarkable. Urinalysis does indicate urinary infection. Patient will be placed on a course of Bactrim. She was advised to follow-up with her PCP. She is educated on signs/symptoms to return to the ED. She is provided discharge instructions. She was agreeable to plan Impression: Urinary tract infection. 2 weeks postop ventral hernia repair. 3 weeks post uncomplicated vaginal delivery. Disposition: Home stable ED Disposition - Plan for ED Patient: Disposition: Home or Assisted Living Diagnosis: Urinary tract infection Instructions: Urinary Tract Infections in Women Prescriptions: Smz/Tmp Ds [Bactrim Ds] 1 tab PO BID #14 tab Prescription Printed Referrals: Care Physician,No Primary [Primary Care Provider] -
[2019-02-23 09:58] LABS: Absolute Lymphocyte Count 1.09 X10^3/uL (0.83-4.51); Absolute Neutrophil Count 7.7 X10^3/uL (2.0-7.7); Basophil# 0.08 X10^3/uL; Basophil% 0.8 % (0-1); Eosinophils% 2.8 % (0-5); Hemoglobin 8.4 g/dL (12.0-15.0); Lymphocyte # 1.09 X10^3/ul (4.0); Lymphocyte % 10.3 % (19-41); Mean Corpuscular Hgb 19.3 pg (27.0-32.0); Mean Corpuscular Volume 66.5 fL (81-99); Mean Platelet Vol. 10.7 fl (6.2-12.0); Monocyte# 1.39 X10^3/uL; Monocyte% 13.1 % (0-10); NRBC Flagged by Analyzer 0 % (0-5); Neutrophil % 72.7 % (47-70); Platelet Count 584 K/mm3 (150-450); RBC Distribution Width CV 19.4 % (11.6-14.6); RBC Distribution Width SD 45.1 fl (35.1-43.9); Red Blood Count 4.36 M/mm3 (4.2-5.4); White Blood Count 10.6 K/mm3 (4.4-11.0)
[2019-02-23 10:04] LABS: Mucous, Urine 0 SEEN /hpf (<or=2+)
[2019-02-23 10:10] LABS: Color, Urine Yellow (Yellow); Glucose, Dipstick Normal (Normal); Ketone-Dipstick Negative (Negative); Leukocyte Esterase-Dipstick 500 /ul (Negative); Nitrite-Dipstick Negative (Negative); Occult Blood-Urine 150 /ul (Negative); Protein-Dipstick 30 mg/dl (Negative); Urine Bilirubin Dipstick Negative (Negative); Urine Clarity Sl. Cloudy (Clear); Urine Urobilinogen 4 mg/dl (Normal); Urine pH 6.5 (5.0 - 8.0)
[2019-02-23 10:13] LABS: Anion Gap 8 (5-15); BUN 5 mg/dL (7-18); BUN/Creat Ratio 7.5 RATIO (10-20); Calcium,Total 8.8 mg/dL (8.5-10.1); Chloride 104 mmol/L (98-107); Creatinine, Serum 0.66 mg/dL (0.55-1.02); EST Glomerular Filtration Rate 103 mL/min (>60); Est Glom Filt Rate - Afr Amer 125 mL/min (>60); Estimated Creatinine Clearance 112.01 ml/min; Glucose 87 mg/dL (74-106); Potassium 3.6 mmol/L (3.5-5.1); Sodium Level 139 mmol/L (136-145)
[2019-02-23 10:17] LABS: Bacteria 2+ /hpf (None Seen); Red Blood Cells-Urine 5-10 SEEN /hpf (0-5); Squamous Epithelial Cells - UA 0-5 SEEN /hpf (5-10); White Blood Cells 25-50 SEEN /hpf (0-5)
[2019-02-23 10:46] VITALS: BP 124/81; RESP 18; O2SAT 95
[2019-02-23 11:09] VITALS: BP 117/72; PULSE 97; RESP 18; TEMP 35
== END 2019-02-23 11:14 | disposition home or self-care (01) ==
PROVIDERS: Emergency Provider Physician Assistant
DX: O86.20 Urinary tract infection following delivery, unspecified (principal); Z98.890 Other specified postprocedural states
CPT/HCPCS: 80048; 81001; 85025; 96360; 99283; J7030; A4216